=== PATIENT | female | born 1980 | race Caucasian/White ===

== ENCOUNTER 2017-08-17 19:16 | Emergency (ER) | payer MEDICARE, OTHER ==
[~2017-08-17] VITALS: Ht 167.6 cm; Wt 52.2 kg
[~2017-08-17 19:16] MED LIST: ALPR0.25 PO; AMPHETAMINE SALTS PO; BENZ-8 PO; CIPR500T94 PO; DEXT20TA24 PO; DEXT30CA6 PO; DEXTROAMP AMPHET PO; DOXY100C2 PO; GUAI600T47 PO; HYDR-971 PO; IBUP200T44 PO; LORA0.5T PO; MIDO5TAB PO; MIRT30TA3 PO; NORCO PO; ONDA4TAB10 PO; ONDA4TAB12 PO; PHEN-443 PO; QUET50TA8 PO; RANI15SY PO; SULF1TAB24 PO; TEMA15CA6 PO; TRAM50TA PO; ZOLP10TA PO; ZOLP5TAB5 PO
[2017-08-17 19:45] VITALS: BP 111/78
[2017-08-17] MEDS ORDERED: ACET325T9 PO (19:56)
[2017-08-17] MEDS ORDERED: CLIN300C8 PO (19:56)
[2017-08-17] MEDS ORDERED: NAPR-683 PO (19:56)
--- NOTE | 2017-08-17 19:56 | PHYS DOC ---
Past History Past Medical History: Alcoholism, Anxiety, Depression, UTI, Other Past Surgical History: Other Smoking: Cigarettes Alcohol Use: Heavy Drug Use: Amphetamine, Marijuana, Methamphetamine Adult General Chief Complaint Chief Complaint: FACE PROBLEM HPI HPI She is a pleasant 36-year-old female with a history of having alcoholism, ADHD, palpitations and prior dental issues presents with facial swelling that she noted earlier today in the left jaw. Patient has noted slight pain with chewing and hot and cold foods on the left jaw with localized swelling without fevers, chills or ear pain. She denies any direct trauma, denies any problems swallowing or change in voice. She's been taking Motrin to treat her symptoms: Mild improvement. She denies any change in voice and eyes and ear drainage or recent URI symptoms. Pain is moderate 6 of 10 Review of Systems Review of Systems Constitutional: Denies fever or chills [] Eyes: Denies change in visual acuity, redness, or eye pain [] HENT: Denies nasal congestion or sore throat [] Respiratory: Denies cough or shortness of breath [] Cardiovascular: No additional information not addressed in HPI [] GI: Denies abdominal pain, nausea, vomiting, bloody stools or diarrhea [] : Denies dysuria or hematuria [] Musculoskeletal: Denies back pain or joint pain [] Integument: Denies rash or skin lesions [] Neurologic: Denies headache, focal weakness or sensory changes [] All other systems were reviewed and found to be within normal limits, except as documented in this note. Allergies Allergies Allergies Coded Allergies Type Severity Reaction Last Updated Verified Penicillins Allergy Intermediate 09/21/16 Yes zolpidem Allergy Intermediate 09/21/16 Yes Physical Exam Physical Exam Other vital signs recorded on the chart within normal limits Constitutional: Well developed, well nourished, no acute distress, non-toxic appearance. She is somewhat dirty with soiled clothing and she has a facial tic [] HENT: Normocephalic, atraumatic, bilateral external ears normal, oropharynx dry , no oral exudates, she has poor dentition with multiple areas of dental caries and erosion to the enamel there is no soft tissue swelling to the gumline, no evidence of gingivitis, there is minimal tenderness to palpation over the teeth on the lower left mandible specifically over tooth 18 19 20 there is no obvious buccal or lingual cellulitis or inflammation. Patient's TMs are clear bilaterally[] Neck: Normal range of motion, no tenderness, supple, no stridor. No lymphadenopathy [] Cardiovascular:Heart rate regular rhythm, no murmur [] Lungs & Thorax: Bilateral breath sounds clear to auscultation [] Skin: Warm, dry, no erythema, no rash. [] Neurologic: Alert and oriented X 3, she has normal speech but a small facial tic noted] Psychologic: Affect normal, judgement normal, mood normal. [] EKG EKG [] Radiology/Procedures Radiology/Procedures [] Course & Med Decision Making Course & Med Decision Making Pertinent Labs and Imaging studies reviewed. (See chart for details) She presents with unilateral facial swelling although slight barely perceivable on my exam with some mild tenderness to palpation over the dentition on the lower half of the left mandible. There is no evidence of gingivitis or other focal cellulitis there is no periapical abscesses noted. Patient has no problem with chewing although she has mild facial tic which is probably likely secondary to medication use in the past. Patient was placed on appropriate antibiotic and dental follow-up. discharge: I've spoken with the patient and/or caregivers. I've explained the patient's condition, diagnosis and treatment plan based on information available to me at this time. I've answered the patient's and/or caregivers questions and addressed any concerns. The patient and/or caregivers have a good understanding the patient's diagnosis, condition and treatment plan as can be expected at this point. Vital signs have been stabilized. The patient's condition is stable for discharge from the emergency department. The patient will pursue further outpatient evaluation with her primary care provider or other designated consulting physician as outlined in the discharge instructions. Patient and/or caregivers are agreeable to this plan of care and follow-up instructions have been explained in detail. The patient and/or caregivers have received these instructions in written format and expressed understanding of these discharge instructions. The patient and her caregivers are aware that if any significant change in condition or worsening of symptoms should prompt him to immediately return to this of the closest emergency department. If an emergent department is not readily available I would encourage him to call 911. [] Dragon Disclaimer Dragon Disclaimer This electronic medical record was generated, in whole or in part, using a voice recognition dictation system. Departure Departure: Impression: Primary Impression: Dental caries limited to enamel Disposition: HOME, SELF-CARE Condition: IMPROVED Referrals: ROSLYN LUNA (PCP) Patient Instructions: Dental Caries Additional Instructions: discharge: I've spoken with the patient and/or caregivers. I've explained the patient's condition, diagnosis and treatment plan based on information available to me at this time. I've answered the patient's and/or caregivers questions and addressed any concerns. The patient and/or caregivers have a good understanding the patient's diagnosis, condition and treatment plan as can be expected at this point. Vital signs have been stabilized. The patient's condition is stable for discharge from the emergency department. The patient will pursue further outpatient evaluation with her primary care provider or other designated consulting physician as outlined in the discharge instructions. Patient and/or caregivers are agreeable to this plan of care and follow-up instructions have been explained in detail. The patient and/or caregivers have received these instructions in written format and expressed understanding of these discharge instructions. The patient and her caregivers are aware that if any significant change in condition or worsening of symptoms should prompt him to immediately return to this of the closest emergency department. If an emergent department is not readily available I would encourage him to call 911. Scripts Acetaminophen (TYLENOL) 325 Mg Tablet 1-2 TAB PO QID, #30 TAB 2 Refills Prov: ANN-MARIE CABRALES MD 08/17/17 Naproxen (NAPROSYN) 500 Mg Tablet 1 TAB PO BID, #20 TAB 1 Refill Prov: ANN-MARIE CABRALES MD 08/17/17 Clindamycin Hcl (CLINDAMYCIN HCL) 300 Mg Capsule 1 CAP PO TID, #30 CAP Prov: ANN-MARIE CABRALES MD 08/17/17 ANN-MARIE CABRALES MD Aug 17, 2017 19:56
[2017-08-17] MEDS ORDERED: CLINDAMYCIN HCL 150 MG CAPSULE PO ONE (20:30)
== END 2017-08-17 20:05 | disposition home or self-care (01) ==
LOC: ER 19:16
DX: K02.61 Dental caries on smooth surface limited to enamel (principal); F41.9 Anxiety disorder, unspecified; F32.9 Major depressive disorder, single episode, unspecified; F10.20 Alcohol dependence, uncomplicated; F90.9 Attention-deficit hyperactivity disorder, unspecified type; Z87.440 Personal history of urinary (tract) infections; F15.10 Other stimulant abuse, uncomplicated; F12.10 Cannabis abuse, uncomplicated; F17.210 Nicotine dependence, cigarettes, uncomplicated; Z88.0 Allergy status to penicillin; Z88.8 Allergy status to other drugs, medicaments and biological substances
CPT/HCPCS: 99283

== ENCOUNTER 2017-08-27 01:52 | Emergency (ER) | payer MEDICARE ==
[2017-08-27 01:52] VITALS: BP 113/74
[~2017-08-27 01:52] MED LIST changes: +ACET325T9 PO; +CLIN300C8 PO; +NAPR-683 PO
--- NOTE | 2017-08-27 02:12 | PHYS DOC ---
Past History Past Medical History: Alcoholism, Anemia, Depression Past Surgical History: Other Smoking: Cigarettes Alcohol Use: Occasionally Drug Use: None Adult General Chief Complaint Chief Complaint: jaw pain HPI HPI 36-year-old female patient with history of alcoholism brought in by EMS because of jaw pain. Patient complaining of lower jaw pain for 2 weeks as a constant pain with swelling of her face. Patient states she has one bottle of wine tonight and usually drinks once a week to able to fall asleep. Patient denies suicidal and homicidal ideation and hallucination. Patient denies taking any pain medication for her pain and rated his pain 10 over 10. EMS reported that patient had blood sugar of 141. Review of Systems Review of Systems Constitutional: Denies fever or chills [] Eyes: Denies change in visual acuity, redness, or eye pain [] HENT: Denies nasal congestion or sore throat [] Respiratory: Denies cough or shortness of breath [] Cardiovascular: No additional information not addressed in HPI [] GI: Denies abdominal pain, nausea, vomiting, bloody stools or diarrhea [] : Denies dysuria or hematuria [] Musculoskeletal: Denies back pain or joint pain , reports jaw pain[] Integument: Denies rash or skin lesions [] Neurologic: Denies headache, focal weakness or sensory changes [] Endocrine: Denies polyuria or polydipsia [] All other systems were reviewed and found to be within normal limits, except as documented in this note. Allergies Allergies Allergies Coded Allergies Type Severity Reaction Last Updated Verified Penicillins Allergy Intermediate 09/21/16 Yes zolpidem Allergy Intermediate 09/21/16 Yes Physical Exam Physical Exam Constitutional: mild distress, Alcohol on breath, anxious, non-toxic appearance. [] HENT: Normocephalic, atraumatic, oropharynx moist, no oral exudates, nose normal. [] Eyes: PERRLA, EOMI, conjunctiva normal, no discharge. [] Neck: Normal range of motion, no tenderness, supple, no stridor. [] Cardiovascular: Tachycardia, no murmur [] Lungs & Thorax: Bilateral breath sounds clear to auscultation [] Abdomen: Bowel sounds normal, soft, no tenderness, no masses, no pulsatile masses. [] Skin: Several old contusion and ecchymosis of extremity and abdominal wall. [] Back: No tenderness, no CVA tenderness. [] Extremities: No tenderness, no cyanosis, no clubbing, ROM intact, no edema. [] Neurologic: Alert and oriented X 3, normal motor function, normal sensory function, no focal deficits noted. [] Psychologic: Not suicidal or homicidal, depressed EKG EKG [EKG interpreted by me. EKG at 0237 with prolonged QT, no ST and T wave abnormality 37 showed sinus rhythm of 94,] Radiology/Procedures Radiology/Procedures [] Course & Med Decision Making Course & Med Decision Making Pertinent Labs reviewed. (See chart for details) Evaluation of patient in ER showed 36-year-old female patient with history of alcoholism brought in by EMS because of complaining of jaw pain for 2 weeks. Patient had alcohol on her breath but was alert and oriented and complaining of pain in her jaw and insomnia. Patient did not have suicidal and homicidal ideation. Jaw exam was unremarkable. Point of care basic metabolic panel did show potassium of 2.4. EKG showed mild prolonged QT without ST-T wave abnormality. CBC and CMP and magnesium and IV line was ordered but patient refused to have test and treatment with IV potassium. Patient signed AGAINST MEDICAL ADVICE. Patient treated with oral potassium and prescription for potassium was given. Patient had potassium of 2.6 in his previous admission and state that she always had low potassium. She ambulated without problem. Dragon Disclaimer Dragon Disclaimer This electronic medical record was generated, in whole or in part, using a voice recognition dictation system. Departure Departure: Impression: Primary Impression: Alcohol abuse Additional Impressions: Tachycardia Insomnia Jaw pain Hypokalemia Noncompliance Anxiety Disposition: 07 AGAINST MEDICAL ADVICE (At 0255) Condition: STABLE Referrals: ROSLYN LUNA (PCP) Patient Instructions: Alcohol Problems, Contusion, Hypokalemia, Insomnia Scripts Potassium Chloride (KLOR-CON M20) 20 Meq Tab.er.prt 20 MEQ PO BID, #60 TAB.SR Prov: GAVINO KENDRICK MD 08/27/17 Problem Qualifiers GAVINO KENDRICK MD Aug 27, 2017 02:12
[2017-08-27] MEDS ORDERED: IBUPROFEN 600 MG TABLET. PO ONE (02:15)
[2017-08-27 02:27] LABS: HEMOGLOBIN ISTAT 12.6 gm/dL; POTASSIUM ISTAT 2.4 mmol/L (3.5-5.0)
--- NOTE | 2017-08-27 02:43 | EKG ---
[address] [address] Test Date: 2017-08-27 Test Time: 02:37:45 Pat Name: HAILY ALBERTO Department: Room: Gender: F Director Traffic And Planning: CARMEN : 1980 Requested By: GAVINO KENDRICK Order Number: [id number] Reading MD: Robert Valle Measurements Intervals [place] Rate: 94 P: 53 CA: 140 QRS: 80 QRSD: 82 T: 44 QT: 398 QTc: 504 Interpretive Statements SINUS RHYTHM PROLONGED QT Electronically Signed On 09-02-2017 15:59:06 CEMENT FINISHER by Robert Valle
[2017-08-27] MEDS ORDERED: POTA20TA4 PO (02:46)
[2017-08-27] MEDS ORDERED: MVI, ADULT NO.4 WITH VIT K 10 ML, FOLIC ACID 1 MG, THIAMINE 100 MG in IV NORMAL SALINE ... IV ONE ×4 (03:00)
[2017-08-27] MEDS ORDERED: POTASSIUM BICARB 25 MEQ EFFERVESCENT TAB. PO ONE (03:00)
== END 2017-08-27 03:00 | disposition left against medical advice (07) ==
LOC: ER 01:52
DX: R68.84 Jaw pain (principal); G47.00 Insomnia, unspecified; R00.0 Tachycardia, unspecified; F10.10 Alcohol abuse, uncomplicated; E87.6 Hypokalemia; F41.9 Anxiety disorder, unspecified; F17.210 Nicotine dependence, cigarettes, uncomplicated; Z91.19 Patient's noncompliance with other medical treatment and regimen; Z88.0 Allergy status to penicillin; Z88.8 Allergy status to other drugs, medicaments and biological substances
CPT/HCPCS: 36415; 80047; 85014; 85018; 93005; 99283-25

== ENCOUNTER 2017-08-31 15:31 | Emergency (ER) | payer MEDICARE ==
[~2017-08-31] VITALS: Ht 167.6 cm; Wt 57.9 kg
[~2017-08-31 15:31] MED LIST changes: +POTA20TA4 PO
[2017-08-31 16:00] VITALS: BP 147/98
--- NOTE | 2017-08-31 17:40 | PHYS DOC ---
Past History Past Medical History: Alcoholism, Anemia, Depression Past Surgical History: Other Smoking: Cigarettes Alcohol Use: Occasionally Drug Use: None Adult General Chief Complaint Chief Complaint: LOWEREXTREMITY INJURY HPI HPI Patient is a 36 year old F who presents with swelling in her feet bilaterally that started today. She also notes symmetrical redness and pain. She denies any injury. She has no other associated symptoms. She has no other exacerbating or alleviating factors. Review of Systems Review of Systems Constitutional: Denies fever or chills [] Eyes: Denies change in visual acuity, redness, or eye pain [] HENT: Denies nasal congestion or sore throat [] Respiratory: Denies cough or shortness of breath [] Cardiovascular: No additional information not addressed in HPI [] GI: Denies abdominal pain, nausea, vomiting, bloody stools or diarrhea [] : Denies dysuria or hematuria [] Musculoskeletal: Denies back pain or joint pain [] Integument: Negative except history of present illness Neurologic: Denies headache, focal weakness or sensory changes [] Endocrine: Denies polyuria or polydipsia [] All other systems were reviewed and found to be within normal limits, except as documented in this note. Family History Family History Noncontributory Current Medications Current Medications Current medications were reviewed Allergies Allergies Allergies Coded Allergies Type Severity Reaction Last Updated Verified Penicillins Allergy Intermediate 09/21/16 Yes zolpidem Allergy Intermediate 09/21/16 Yes Physical Exam Physical Exam Constitutional: Well developed, well nourished, no acute distress, non-toxic appearance. [] HENT: Normocephalic, atraumatic Eyes: EOMI, conjunctiva normal, no discharge. [] Neck: Normal range of motion, no tenderness, supple, no stridor. [] Cardiovascular:Heart rate regular rhythm, no murmur [] Lungs & Thorax: Bilateral breath sounds clear to auscultation [] Abdomen: Bowel sounds normal, soft, no tenderness, no masses, no pulsatile masses. [] Skin: Symmetric erythema and edema in the feet bilaterally without signs of skin breakdown. Both feet are warm. She is noted to have no socks on and it is well below freezing outside. The redness appears to be in the approximate shape of her shoes. Extremities: No tenderness, no cyanosis, no clubbing, ROM intact, no edema. [] Neurologic: Alert and oriented X 3, normal motor function, normal sensory function, no focal deficits noted. [] Psychologic: Affect normal, judgement normal, mood normal. [] Current Patient Data Vital Signs Vital Signs Date Time Temp Pulse Resp B/P (MAP) Pulse Ox O2 Delivery O2 Flow Rate FiO2 08/31/17 16:00 97.7 108 20 99 Room Air EKG EKG [] Radiology/Procedures Radiology/Procedures [] Course & Med Decision Making Course & Med Decision Making Pertinent Labs and Imaging studies reviewed. (See chart for details) [] Dragon Disclaimer Dragon Disclaimer This electronic medical record was generated, in whole or in part, using a voice recognition dictation system. Departure Departure: Impression: Primary Impression: Foot swelling Disposition: 01 HOME, SELF-CARE Condition: STABLE Referrals: ROSLYN LUNA (PCP) Patient Instructions: Medical Screening Exam Additional Instructions: Svetlana was seen in the emergency department for foot swelling and pain. No emergency medical condition was found on history or physical exam. She was advised to use compression stockings and lidocaine patches to manage her symptoms. She was also advised follow-up with her primary care doctor as soon as possible for further management of this condition. LUIS FELIPE HOOKS MD Aug 31, 2017 17:40
== END 2017-08-31 17:47 | disposition home or self-care (01) ==
LOC: ER 15:31
DX: R22.43 Localized swelling, mass and lump, lower limb, bilateral (principal); M79.672 Pain in left foot; M79.671 Pain in right foot; F10.20 Alcohol dependence, uncomplicated; F17.210 Nicotine dependence, cigarettes, uncomplicated; Z86.2 Personal history of diseases of the blood and blood-forming organs and certain disorders involving the immune mechanism; Z88.0 Allergy status to penicillin; Z88.8 Allergy status to other drugs, medicaments and biological substances
CPT/HCPCS: 99281

== ENCOUNTER 2017-09-13 03:51 | Emergency (ER) | payer MEDICARE ==
[~2017-09-13] VITALS: Ht 167.6 cm; Wt 54.0 kg
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
[2017-09-13] MEDS ORDERED: CEPH-264 PO (04:08)
[2017-09-13] MEDS ORDERED: CEPHALEXIN 250 MG CAPSULE PO ONE (04:15)
[2017-09-13] MEDS ORDERED: ACETAMINOPHEN 500 MG TABLET PO ONE (04:15)
[2017-09-13 04:38] VITALS: BP 115/80
== END 2017-09-13 04:38 | disposition home or self-care (01) ==
LOC: ER 03:51
DX: K08.89 Other specified disorders of teeth and supporting structures (principal); R59.9 Enlarged lymph nodes, unspecified; G89.29 Other chronic pain; F32.9 Major depressive disorder, single episode, unspecified; F43.10 Post-traumatic stress disorder, unspecified; F10.20 Alcohol dependence, uncomplicated; F17.210 Nicotine dependence, cigarettes, uncomplicated; Z86.2 Personal history of diseases of the blood and blood-forming organs and certain disorders involving the immune mechanism; Z88.0 Allergy status to penicillin; Z88.8 Allergy status to other drugs, medicaments and biological substances
CPT/HCPCS: 99283

== ENCOUNTER 2017-10-01 03:41 | Emergency (ER) | payer MEDICARE ==
[~2017-10-01] VITALS: Ht 167.6 cm; Wt 54.0 kg
[~2017-10-01 03:41] MED LIST changes: +CEPH-264 PO
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
[2017-10-01] MEDS: HYDROcodon/IBUPROFEN 7.5/200MG 1 TAB TABLET PO ONE ×2 (04:00→04:08)
[2017-10-01] MEDS ORDERED: ALBUTEROL SULFATE 8GM INHALER. INH ONE (04:00)
[2017-10-01] MEDS ORDERED: diphenhydrAMINE HCL 25 MG CAPSULE PO ONE (04:00)
[2017-10-01] MEDS ORDERED: predniSONE 10 MG TABLET PO ONE ×2 (04:00→04:15)
[2017-10-01] MEDS ORDERED: IV RINGERS SOLUTION,LACTATED 1,000 ML IV ONE (04:15)
[2017-10-01] MEDS ORDERED: oxyCODONE/APAP 10/325 1 TAB TABLET PO ONE (04:15)
[2017-10-01 04:53] LABS: BASO # 0.1 x10^3/uL (0.0-0.2); BASO % 1 % (0-3); EOS # 0.3 x10^3/uL (0.0-0.7); EOS % 4 % (0-3); HEMATOCRIT 41.1 % (36.0-47.0); HEMOGLOBIN 14.5 g/dL (12.0-15.5); LYMPH # 1.9 x10^3/uL (1.0-4.8); LYMPH % 29 % (24-48); MEAN CORPUSCULAR HEMOGLOBIN 38 pg (25-35); MEAN CORPUSCULAR HGB CONC 35 g/dL (31-37); MEAN CORPUSCULAR VOLUME 106 fL (79-100); MONO % 15 % (0-9); NEUT # 3.3 x10^3uL (1.8-7.7); NEUT % 51 % (31-73); PLATELET COUNT 244 x10^3/uL (140-400); RED BLOOD COUNT 3.86 x10^6/uL (3.50-5.40); RED CELL DISTRIBUTION WIDTH 13.1 % (11.5-14.5); WHITE BLOOD COUNT 6.5 x10^3/uL (4.0-11.0)
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
[2017-10-01 04:59] LABS: BILIRUBIN,URINE NEG (NEG); CLARITY,URINE CLEAR; COLOR,URINE YELLOW; GLUCOSE,URINE NEG (NEG); NITRITE,URINE NEG (NEG); RBC,URINE OCC /HPF (0-2); UROBILINOGEN,URINE 0.2 mg/dL (0.2 mg/dL)
[2017-10-01 05:00] LABS: BACTERIA,URINE FEW /HPF (0-FEW); SQUAMOUS EPITHELIAL CELL,UR MANY /LPF
[2017-10-01 05:03] LABS: CALCIUM 8.7 mg/dL (8.5-10.1); CREATININE 0.5 mg/dL (0.6-1.0); GFR 141.2; MAGNESIUM 1.9 mg/dL (1.8-2.4)
[2017-10-01 05:04] LABS: BARBITURATES NEG (NEG); BENZODIAZEPINES NEG (NEG); CANNABINOIDS NEG (NEG); COCAINE NEG (NEG); METHADONE NEG (NEG); OPIATES NEG (NEG); PHENCYCLIDINE NEG (NEG)
[2017-10-01 05:08] LABS: POTASSIUM 2.7 mmol/L (3.5-5.1)
[2017-10-01 05:09] LABS: AMPHETAMINE/METHAMPHETAMINE NEG (NEG)
[2017-10-01] MEDS ORDERED: POTASSIUM CHLORIDE 20 MEQ/15 ML ORAL LIQUID. PO ONE (05:15)
[2017-10-01] MEDS ORDERED: IPRATRPIUM/ALBUTEROL 0.5/2.5MG 3 ML NEBU. NEB ONE (05:15)
[2017-10-01 05:19] LABS: INFLUENZA A PATIENT NEGATIVE (NEGATIVE); INFLUENZA B PATIENT NEGATIVE (NEGATIVE)
[2017-10-01] MEDS ORDERED: PRED50TA PO (05:34)
[2017-10-01] MEDS ORDERED: POTA10CA PO (05:38)
[2017-10-01] MEDS ORDERED: POTASSIUM CHLORIDE 20 MEQ TABLET.ER. PO ONE (06:00)
[2017-10-01 06:09] VITALS: BP 96/70
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
--- NOTE | 2017-10-01 08:41 | EKG ---
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
== END 2017-10-01 06:16 | disposition home or self-care (01) ==
LOC: ER 03:41
DX: B34.9 Viral infection, unspecified (principal); J40 Bronchitis, not specified as acute or chronic; D53.9 Nutritional anemia, unspecified; D50.9 Iron deficiency anemia, unspecified; E87.6 Hypokalemia; F10.20 Alcohol dependence, uncomplicated; F17.210 Nicotine dependence, cigarettes, uncomplicated; F32.9 Major depressive disorder, single episode, unspecified; Z86.2 Personal history of diseases of the blood and blood-forming organs and certain disorders involving the immune mechanism; Z88.0 Allergy status to penicillin; Z88.8 Allergy status to other drugs, medicaments and biological substances
CPT/HCPCS: 36415; 70450; 71046; 80048; 80307; 81001; 81025; 83735; 84702; 85025; 85610; 85730; 87070; 87804; 87880; 93005; 94640; 96360; 99285; G0480; J7120; J7512; J7613; J7620; Q0163; 94664; G0479

== ENCOUNTER 2017-11-03 11:37 | Emergency (ER) | payer MEDICARE ==
[~2017-11-03] VITALS: Ht 167.6 cm; Wt 54.0 kg
[~2017-11-03 11:37] MED LIST changes: +POTA10CA PO; +PRED50TA PO
[2017-11-03] MEDS ORDERED: HALOPERIDOL 1 MG TABLET ONE (11:57)
[2017-11-03] MEDS ORDERED: HALOPERIDOL 1 MG TABLET PO ONE (12:00)
[2017-11-03 12:14] LABS: BASO % 1 % (0-3); EOS % 0 % (0-3); HEMATOCRIT 39.6 % (36.0-47.0); HEMOGLOBIN 13.9 g/dL (12.0-15.5); LYMPH # 0.9 x10^3/uL (1.0-4.8); LYMPH % 18 % (24-48); MEAN CORPUSCULAR HEMOGLOBIN 36 pg (25-35); MEAN CORPUSCULAR HGB CONC 35 g/dL (31-37); MEAN CORPUSCULAR VOLUME 103 fL (79-100); MONO # 0.6 x10^3/uL (0.0-1.1); MONO % 12 % (0-9); NEUT # 3.5 x10^3uL (1.8-7.7); NEUT % 69 % (31-73); PLATELET COUNT 238 x10^3/uL (140-400); RED BLOOD COUNT 3.85 x10^6/uL (3.50-5.40); WHITE BLOOD COUNT 5.1 x10^3/uL (4.0-11.0)
--- NOTE | 2017-11-03 12:19 | RAD ---
EXAM: Chest, single view. HISTORY: Pain. COMPARISON: 10/01/2017. FINDINGS: A frontal view of the chest is obtained. There is no infiltrate, effusion or pneumothorax. The heart is normal in size. There is fixation instrumentation traversing a healed proximal left humeral fracture, partially included on the [id number]. There is a suspected healed right sixth rib fracture. IMPRESSION: No acute pulmonary finding. Electronically signed by: Debra Canales MD (11/03/2017 12:16 PM) [id number]
[2017-11-03 12:23] LABS: ALBUMIN 3.3 g/dL (3.4-5.0); CALCIUM 8.7 mg/dL (8.5-10.1); CREATININE 0.5 mg/dL (0.6-1.0); DIRECT BILIRUBIN 0.2 mg/dL (0.0-0.2); GFR 141.2; TOTAL BILIRUBIN 0.9 mg/dL (0.2-1.0)
[2017-11-03 12:25] LABS: POTASSIUM 2.6 mmol/L (3.5-5.1)
--- NOTE | 2017-11-03 13:13 | EKG ---
[address] [address] Test Date: 2017-11-03 Test Time: 11:44:50 Pat Name: HAILY ALBERTO Department: Room: Gender: F Insurance Risk Manager: CARMEN : 1980 Requested By: FRACISCO NOBLE Order Number: [id number] Reading MD: Measurements Intervals [place] Rate: 96 P: -50 TN: 136 QRS: 82 QRSD: 78 T: 59 QT: 366 QTc: 469 Interpretive Statements SINUS RHYTHM LEFT ATRIAL ABNORMALITY QRS(T) CONTOUR ABNORMALITY CONSIDER ANTEROSEPTAL MYOCARDIAL DAMAGE ABNORMAL ECG RI6.01 No previous ECG available for comparison
[2017-11-03] MEDS ORDERED: POTASSIUM CHLORIDE 20 MEQ/15 ML ORAL LIQUID. PO ONE (14:00)
[2017-11-03 14:01] LABS: PREG TEST PT QUAL NEGATIVE (NEG)
[2017-11-03 14:10] VITALS: BP 146/71
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
[2017-11-03 14:15] LABS: AMPHETAMINE/METHAMPHETAMINE POS (NEG); BARBITURATES NEG (NEG); BENZODIAZEPINES NEG (NEG); CANNABINOIDS NEG (NEG); COCAINE NEG (NEG); METHADONE NEG (NEG); OPIATES NEG (NEG); PHENCYCLIDINE NEG (NEG)
[2017-11-03 14:30] LABS: BILIRUBIN,URINE NEG (NEG); CLARITY,URINE CLEAR; COLOR,URINE YELLOW; GLUCOSE,URINE NEG (NEG); NITRITE,URINE NEG (NEG); RBC,URINE 0 /HPF (0-2); UROBILINOGEN,URINE 0.2 mg/dL (0.2 mg/dL); WBC,URINE 0 /HPF (0-4)
[2017-11-03] MEDS ORDERED: POTASSIUM CHLORIDE IV ONE (14:30)
[2017-11-03] MEDS ORDERED: NORMAL SALINE IV ONE (14:30)
[2017-11-03 14:31] LABS: BACTERIA,URINE 0 /HPF (0-FEW); SQUAMOUS EPITHELIAL CELL,UR OCC /LPF
== END 2017-11-03 15:25 | disposition left against medical advice (07) ==
LOC: ER 11:37
DX: R07.89 Other chest pain (principal); E87.6 Hypokalemia; F41.9 Anxiety disorder, unspecified; F32.9 Major depressive disorder, single episode, unspecified; F17.210 Nicotine dependence, cigarettes, uncomplicated; Z87.820 Personal history of traumatic brain injury; Z88.0 Allergy status to penicillin; Z88.8 Allergy status to other drugs, medicaments and biological substances
CPT/HCPCS: 36415; 71045; 80048; 80076; 80307; 81001; 83690; 84703; 85025; 93005; 99285-25; G0479

== ENCOUNTER 2018-12-24 18:55 | Inpatient (IN) | payer MEDICARE, OTHER ==
[~2018-12-24] VITALS: Ht 167.6 cm; Wt 55.3 kg
[~2018-12-24 18:55] MED LIST changes: +HYDR-3165 PO; -HYDR-971 PO; -QUET50TA8 PO; +QUET50TA9 PO
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
[2018-12-24] MEDS ORDERED: MVI, ADULT NO.4 WITH VIT K 10 ML, FOLIC ACID SYRINGE for ER 1 MG, THIAMINE INJ 100 MG, ... IV ONE ×5 (19:30)
--- NOTE | 2018-12-24 19:37 | EKG ---
[address] [address] Test Date: 2018-12-24 Test Time: 19:36:51 Pat Name: HAILY ALBERTO Department: Room: Gender: F Binder Caser: : 1980 Requested By: TORITO BERMUDEZ Order Number: [id number] Reading MD: Robert Valle Measurements Intervals [place] Rate: 100 P: 22 NH: 140 QRS: 91 QRSD: 84 T: 41 QT: 366 QTc: 475 Interpretive Statements SINUS RHYTHM RIGHTWARD AXIS PROLONGED QT Electronically Signed On 01-21-2019 13:15:39 CDT by Robert Valle
[2018-12-24 19:58] LABS: BASO % 1 % (0-3); EOS # 0.1 x10^3/uL (0.0-0.7); EOS % 1 % (0-3); HEMATOCRIT 38.9 % (36.0-47.0); LYMPH # 1.7 x10^3/uL (1.0-4.8); LYMPH % 17 % (24-48); MEAN CORPUSCULAR HEMOGLOBIN 31 pg (25-35); MEAN CORPUSCULAR HGB CONC 34 g/dL (31-37); MEAN CORPUSCULAR VOLUME 94 fL (79-100); MONO # 0.7 x10^3/uL (0.0-1.1); MONO % 7 % (0-9); NEUT # 7.2 x10^3uL (1.8-7.7); NEUT % 74 % (31-73); PLATELET COUNT 241 x10^3/uL (140-400); RED BLOOD COUNT 4.15 x10^6/uL (3.50-5.40); RED CELL DISTRIBUTION WIDTH 13.7 % (11.5-14.5); WHITE BLOOD COUNT 9.7 x10^3/uL (4.0-11.0)
[2018-12-24 19:59] LABS: BILIRUBIN,URINE NEG (NEG); CLARITY,URINE CLEAR; COLOR,URINE YELLOW; GLUCOSE,URINE NEG (NEG); UROBILINOGEN,URINE 0.2 mg/dL (0.2 mg/dL)
[2018-12-24 20:00] LABS: BACTERIA,URINE 0 /HPF (0-FEW); NITRITE,URINE NEG (NEG); RBC,URINE 0 /HPF (0-2); SQUAMOUS EPITHELIAL CELL,UR OCC /LPF; WBC,URINE 0 /HPF (0-4)
[2018-12-24 20:03] LABS: BARBITURATES NEG (NEG); BENZODIAZEPINES NEG (NEG); CANNABINOIDS NEG (NEG); COCAINE NEG (NEG); METHADONE NEG (NEG); OPIATES NEG (NEG); PHENCYCLIDINE NEG (NEG)
[2018-12-24 20:05] LABS: AMPHETAMINE/METHAMPHETAMINE NEG (NEG)
[2018-12-24 20:16] LABS: U PREG PATIENT NEGATIVE (NEG)
--- NOTE | 2018-12-24 20:59 | RAD ---
EXAM: Chest, single view. HISTORY: Altered mental status. COMPARISON: 11/03/2017 FINDINGS: A frontal view the chest is obtained. There is no infiltrate, pleural effusion or pneumothorax. The heart is normal in size. There is suspected bilateral lower lobe atelectasis. There is an IVC filter and there are cholecystectomy clips at the inferior margin of the [id number]. IMPRESSION: No acute pulmonary finding. Electronically signed by: Debra Canales MD (12/24/2018 8:56 PM) [facility]
--- NOTE | 2018-12-24 21:03 | RAD ---
EXAM: Head CT without contrast. HISTORY: Altered mental status. TECHNIQUE: Computed tomographic images of the head were obtained without contrast. *One or more of the following individualized dose reduction techniques were utilized for this examination: 1. Automated exposure control. 2. Adjustment of the mA and/or kV according to patient size. 3. Use of iterative reconstruction technique. COMPARISON: 10/01/2017. FINDINGS: There is no acute or subacute hemorrhage. There is stable encephalomalacia within the left parietal and posterior temporal lobes with overlying craniotomy changes. There is ex vacuo dilatation of the posterior left lateral ventricle. There is no mass effect or midline shift. There is no hydrocephalus. The urias-white matter differentiation pattern is intact. The visualized orbits and paranasal sinuses mastoid air cells are unremarkable. No suspicious calvarial lesion is seen. IMPRESSION: 1. Stable encephalomalacia within the left cerebral hemisphere with overlying craniotomy changes. There is associated ex vacuo dilatation of the left lateral ventricle. 2. No acute intracranial finding. Note is made that MRI is more sensitive for acute infarction. Electronically signed by: Debra Canales MD (12/24/2018 9:00 PM) [facility]
[2018-12-24 22:13] LABS: ACETAMIN < 2 mcg/mL (10-30); ETHANOL 338 mg/dL (0-10); SALIC 3.2 mg/dL (2.8-20.0)
[2018-12-24 22:18] LABS: ALBUMIN 3.4 g/dL (3.4-5.0); CALCIUM 8.4 mg/dL (8.5-10.1); CREATININE 0.6 mg/dL (0.6-1.0); GFR 113.1; MAGNESIUM 2.8 mg/dL (1.8-2.4); POTASSIUM 3.6 mmol/L (3.5-5.1); TOTAL BILIRUBIN 0.1 mg/dL (0.2-1.0); TOTAL PROTEIN 6.8 g/dL (6.4-8.2)
[2018-12-24] MEDS ORDERED: ACETAMINOPHEN 325 MG TABLET PO PRN (22:45)
[2018-12-24] MEDS ORDERED: ONDANSETRON PF 4 MG/2 ML VIAL. IV PRN (22:45)
[2018-12-24] MEDS: IV NORMAL SALINE 1,000ML 1,000 ML IV SCH (23:00)
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
[2018-12-24 23:52] VITALS: BP 114/79
[2018-12-25] MEDS: IV NORMAL SALINE 1,000ML 1,000 ML IV SCH (02:55)
--- NOTE | 2018-12-25 04:34 | NUR ---
Pt amb x1 assist to BR. Reports inability to urinate. Pt has voided x3 since arrival to unit, with once being an episode of incontinence. Pt requesting to be straight cathed. Assisted back to bed and bladder scan performed. Showed 0ml urine in bladder. Pt informed. WCTM.
[2018-12-25 05:29] VITALS: BP 126/87
[2018-12-25 06:19] LABS: BASO % 1 % (0-3); EOS # 0.1 x10^3/uL (0.0-0.7); EOS % 1 % (0-3); HEMATOCRIT 40.7 % (36.0-47.0); HEMOGLOBIN 13.9 g/dL (12.0-15.5); LYMPH # 1.9 x10^3/uL (1.0-4.8); LYMPH % 38 % (24-48); MEAN CORPUSCULAR HEMOGLOBIN 32 pg (25-35); MEAN CORPUSCULAR HGB CONC 34 g/dL (31-37); MEAN CORPUSCULAR VOLUME 93 fL (79-100); MONO # 0.3 x10^3/uL (0.0-1.1); MONO % 6 % (0-9); NEUT # 2.7 x10^3uL (1.8-7.7); NEUT % 55 % (31-73); PLATELET COUNT 261 x10^3/uL (140-400); RED CELL DISTRIBUTION WIDTH 13.8 % (11.5-14.5)
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
[2018-12-25 06:31] LABS: ALBUMIN 3.4 g/dL (3.4-5.0); CREATININE 0.4 mg/dL (0.6-1.0); GFR 180.6; POTASSIUM 4.8 mmol/L (3.5-5.1); TOTAL BILIRUBIN 0.3 mg/dL (0.2-1.0); TOTAL PROTEIN 6.9 g/dL (6.4-8.2)
--- NOTE | 2018-12-25 06:50 | NUR ---
Pt still wishes to leave. Pt contacted her father, Syed, to come pick her up. AMA paperwork signed. IV removed and patient dressed in her clothes. Belongings gathered. Dr. Santiago, security and nursing front desk supervisor notified, staff talked with patient on decision to leave again and remains adamant she does not want to be in the hospital. Pt amb off unit independently with all belongings.
== END 2018-12-25 06:59 | disposition left against medical advice (07) | DRG 894 ==
LOC: ER 18:55 → 1 SOUTH 22:29
PROVIDERS: ADMIT Internal Medicine; ATTEND Internal Medicine
DX: F10.129 Alcohol abuse with intoxication, unspecified (principal); F31.9 Bipolar disorder, unspecified; F17.210 Nicotine dependence, cigarettes, uncomplicated; Z88.0 Allergy status to penicillin; Z53.21 Procedure and treatment not carried out due to patient leaving prior to being seen by health care provider; G93.89 Other specified disorders of brain
CPT/HCPCS: 36415; 70450; 71045; 80053; 80307; 80329; 81001; 81025; 82947; 83735; 83880; 85025; 85610; 93005; 96365; 96366; 99406; G0480; P9612; 82003; 99285-25; J7030

== ENCOUNTER 2019-01-01 12:26 | Emergency (ER) | payer MEDICARE, OTHER ==
[~2019-01-01] VITALS: Ht 167.6 cm; Wt 54.0 kg
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
--- NOTE | 2019-01-01 16:44 | EKG ---
[address] [address] Test Date: 2019-01-01 Test Time: 16:41:39 Pat Name: HAILY ALBERTO Department: Room: Gender: F Supervisor Mapping: ANGELA : 1980 Requested By: TAWANNA LAWS Order Number: [id number] Reading MD: Robert Valle Measurements Intervals [place] Rate: 104 P: 10 [place]: 142 QRS: 87 QRSD: 86 T: 54 QT: 370 QTc: 487 Interpretive Statements SINUS TACHYCARDIA Electronically Signed On 01-22-2019 12:31:41 CDT by Robert Valle
[2019-01-01] MEDS ORDERED: IV NORMAL SALINE 1,000ML 1,000 ML IV ONE (16:45)
[2019-01-01 16:49] LABS: BASO % 0 % (0-3); EOS # 0.1 x10^3/uL (0.0-0.7); EOS % 1 % (0-3); HEMATOCRIT 43.8 % (36.0-47.0); HEMOGLOBIN 14.7 g/dL (12.0-15.5); LYMPH # 4.4 x10^3/uL (1.0-4.8); LYMPH % 30 % (24-48); MEAN CORPUSCULAR HEMOGLOBIN 31 pg (25-35); MEAN CORPUSCULAR HGB CONC 34 g/dL (31-37); MEAN CORPUSCULAR VOLUME 93 fL (79-100); MONO # 1.4 x10^3/uL (0.0-1.1); MONO % 10 % (0-9); NEUT # 8.7 x10^3uL (1.8-7.7); NEUT % 60 % (31-73); PLATELET COUNT 347 x10^3/uL (140-400); RED BLOOD COUNT 4.69 x10^6/uL (3.50-5.40); RED CELL DISTRIBUTION WIDTH 13.8 % (11.5-14.5); WHITE BLOOD COUNT 14.7 x10^3/uL (4.0-11.0)
[2019-01-01 17:08] LABS: ACETAMIN < 2 mcg/mL (10-30); SALIC 3.4 mg/dL (2.8-20.0)
[2019-01-01 17:09] LABS: ALBUMIN 3.2 g/dL (3.4-5.0); ALBUMIN/GLOBULIN RATIO 0.8 (1.0-1.7); CALCIUM 8.8 mg/dL (8.5-10.1); CREATININE 0.6 mg/dL (0.6-1.0); GFR 113.1; POTASSIUM 3.5 mmol/L (3.5-5.1); TOTAL BILIRUBIN 0.3 mg/dL (0.2-1.0); TOTAL PROTEIN 7.4 g/dL (6.4-8.2)
[2019-01-01 19:00] VITALS: BP 104/64
== END 2019-01-01 19:30 | disposition left against medical advice (07) ==
LOC: ER 12:26
DX: F10.129 Alcohol abuse with intoxication, unspecified (principal); Y90.8 Blood alcohol level of 240 mg/100 ml or more
CPT/HCPCS: 36415; 80053; 80329; 82947; 85025; 93005; 99285; G0480; 82003; J7030

== ENCOUNTER 2019-01-29 09:32 | Emergency (ER) | payer MEDICARE, OTHER ==
[~2019-01-29] VITALS: Ht 167.6 cm; Wt 54.0 kg
[2019-01-29] MEDS ORDERED: IV NORMAL SALINE 1,000ML 1,000 ML IV SCH (09:39)
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
[2019-01-29 10:00] LABS: BASO % 1 % (0-3); EOS # 0.1 x10^3/uL (0.0-0.7); EOS % 1 % (0-3); HEMATOCRIT 41.2 % (36.0-47.0); HEMOGLOBIN 14.3 g/dL (12.0-15.5); LYMPH # 1.4 x10^3/uL (1.0-4.8); LYMPH % 24 % (24-48); MEAN CORPUSCULAR HEMOGLOBIN 33 pg (25-35); MEAN CORPUSCULAR HGB CONC 35 g/dL (31-37); MEAN CORPUSCULAR VOLUME 95 fL (79-100); MONO # 0.5 x10^3/uL (0.0-1.1); MONO % 8 % (0-9); NEUT % 66 % (31-73); PLATELET COUNT 248 x10^3/uL (140-400); RED BLOOD COUNT 4.35 x10^6/uL (3.50-5.40); RED CELL DISTRIBUTION WIDTH 14.3 % (11.5-14.5); WHITE BLOOD COUNT 6.1 x10^3/uL (4.0-11.0)
[2019-01-29] MEDS ORDERED: IOHEXOL 300 MG/ML 75 ML VIAL. IV ONE (10:00)
[2019-01-29] MEDS ORDERED: ONDANSETRON PF 4 MG/2 ML VIAL. IV ONE (10:00)
[2019-01-29 10:14] LABS: ALBUMIN 3.5 g/dL (3.4-5.0); CREATININE 0.9 mg/dL (0.6-1.0); GFR 70.8; POTASSIUM 3.1 mmol/L (3.5-5.1); TOTAL BILIRUBIN 0.3 mg/dL (0.2-1.0)
--- NOTE | 2019-01-29 11:02 | RAD ---
CT ABD PELV W/ IV CONTRST ONLY Indication: Right abdominal pain after falling. Exposure: One or more of the following individualized dose reduction techniques were utilized for this examination: 1. Automated exposure control 2. Adjustment of the mA and/or kV according to patient size 3. Use of iterative reconstruction technique. Technique: Intravenous contrast was given. No oral contrast per request. Comparison: Axial images from noncontrast study March 05, 2016 FINDINGS: Lung bases are clear. Area of low-density within the medial segment of the left lobe of the liver adjacent to the falciform ligament without mass effect, likely just an area of focal fatty infiltration. Tiny low-density lesion in the posterior right lobe less than 1 cm too small to characterize. Both of these findings appear roughly similar as seen on noncontrast prior study. Inferior vena cava filter is identified. The legs of the filter protrude beyond the IVC similar to what was seen previously. It is possible that some of the legs extend into the pancreas itself, similar to prior study. Pancreas demonstrates a homogeneous morphology without peripancreatic inflammatory stranding or fluid. Spleen unremarkable. Right adrenal gland unremarkable. Low-density left adrenal nodule is redemonstrated and appears of similar size, measuring about 13 mm. Kidneys enhance symmetrically. No hydronephrosis. Gallbladder surgically absent. Aorta nonaneurysmal. No significant lymph node enlargement. No significant small bowel distention. Wall thickening of the sigmoid colon and descending colon, but that could be due to nondistention. There is no acute appearing paracolonic inflammatory stranding. The appendix is not clearly visualized. Mild retained stool in the colon on the right. No evidence of pneumoperitoneum or ascites. Urinary bladder demonstrates wall thickening, even accounting for the lack of distention. No evidence of pelvic mass. Spurring of the L2 vertebrae with superior endplate Schmorl's node. No evidence of acute fracture or aggressive bone destruction. Mild left convexity lumbar scoliosis. IMPRESSION: 1. Circumferential wall thickening of the descending and sigmoid colon. No evidence of significant paracolonic inflammatory stranding and this could just be due to nondistention, unless there are clinical signs of colitis. 2. Inferior vena cava filter with extraluminal leg protrusion, apparently into the pancreas. However this appears stable since prior study. 3. Stable left adrenal mass. Electronically signed by: Emory Lipscomb MD (01/29/2019 10:58 AM) [id number]
[2019-01-29 11:40] VITALS: BP 128/88
[2019-01-29] MEDS ORDERED: MELO7.5T29 PO (11:41)
[2019-01-29] MEDS ORDERED: TRAM50TA PO (11:41)
[2019-01-29 12:00] LABS: COLOR,URINE YELLOW
[2019-01-29 12:01] LABS: BACTERIA,URINE FEW /HPF (0-FEW); BILIRUBIN,URINE NEG (NEG); CLARITY,URINE CLEAR; GLUCOSE,URINE NEG (NEG); NITRITE,URINE NEG (NEG); RBC,URINE 0 /HPF (0-2); SQUAMOUS EPITHELIAL CELL,UR MOD /LPF; UROBILINOGEN,URINE 1 mg/dL (0.2 mg/dL)
== END 2019-01-29 11:54 | disposition home or self-care (01) ==
LOC: ER 09:32
DX: S30.1XXA Contusion of abdominal wall, initial encounter (principal); F31.9 Bipolar disorder, unspecified; F17.210 Nicotine dependence, cigarettes, uncomplicated; Z88.0 Allergy status to penicillin; Z88.8 Allergy status to other drugs, medicaments and biological substances; W10.8XXA Fall (on) (from) other stairs and steps, initial encounter; Y93.89 Activity, other specified; Y92.89 Other specified places as the place of occurrence of the external cause; Y99.8 Other external cause status
CPT/HCPCS: 36415; 74177; 80053; 81001; 81025; 83690; 85025; 85610; 85730; 96374; 96375; 96376; 99285; J2405; J3010; Q9967; J7030

== ENCOUNTER 2019-03-16 09:24 | Inpatient (IN) | payer MEDICARE, MEDICAID ==
[~2019-03-16] VITALS: Ht 167.6 cm; Wt 52.6 kg
[~2019-03-16 09:24] MED LIST changes: +MELO7.5T29 PO
[2019-03-16] MEDS ORDERED: IV NORMAL SALINE 1,000ML 1,000 ML IV ONE (09:45)
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
[2019-03-16 10:26] LABS: BASO % 0 % (0-3); EOS % 0 % (0-3); HEMATOCRIT 35.9 % (36.0-47.0); HEMOGLOBIN 12.7 g/dL (12.0-15.5); LYMPH # 0.7 x10^3/uL (1.0-4.8); LYMPH % 10 % (24-48); MEAN CORPUSCULAR HEMOGLOBIN 33 pg (25-35); MEAN CORPUSCULAR HGB CONC 35 g/dL (31-37); MEAN CORPUSCULAR VOLUME 94 fL (79-100); MONO # 0.5 x10^3/uL (0.0-1.1); MONO % 8 % (0-9); NEUT # 5.9 x10^3uL (1.8-7.7); NEUT % 82 % (31-73); PLATELET COUNT 151 x10^3/uL (140-400); RED BLOOD COUNT 3.82 x10^6/uL (3.50-5.40); RED CELL DISTRIBUTION WIDTH 13.3 % (11.5-14.5); WHITE BLOOD COUNT 7.1 x10^3/uL (4.0-11.0)
[2019-03-16 10:38] LABS: ALBUMIN 3.6 g/dL (3.4-5.0); ALBUMIN/GLOBULIN RATIO 1.1 (1.0-1.7); CALCIUM 9.5 mg/dL (8.5-10.1); CREATININE 0.7 mg/dL (0.6-1.0); GFR 94.7; TOTAL BILIRUBIN 1.3 mg/dL (0.2-1.0); TOTAL PROTEIN 6.8 g/dL (6.4-8.2)
[2019-03-16 10:40] LABS: POTASSIUM 2.4 mmol/L (3.5-5.1)
[2019-03-16] MEDS ORDERED: POTASSIUM CL 40MEQ IN 0.9%NACL 1,000 ML IV ONE (10:45)
[2019-03-16] MEDS ORDERED: POTASSIUM CHLORIDE 20 MEQ TABLET.ER. PO ONE (11:20)
[2019-03-16] MEDS ORDERED: ONDANSETRON PF 4 MG/2 ML VIAL. ONE (13:31)
[2019-03-16 13:35] VITALS: BP 122/81
--- NOTE | 2019-03-16 13:42 | EKG ---
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
[2019-03-16] MEDS ORDERED: HYDROcodone/APAP 5/325MG 1 TAB TABLET ONE (14:14)
[2019-03-16] MEDS ORDERED: METOCLOPRAMIDE HCL 10 MG/2 ML VIAL. IV PRN (14:15)
[2019-03-16] MEDS ORDERED: KETOROLAC 30 MG/ML VIAL. IV PRN (14:15)
[2019-03-16] MEDS ORDERED: HYDROcodone/APAP 5/325MG 1 TAB TABLET PO PRN (14:15)
[2019-03-16] MEDS ORDERED: ONDANSETRON PF 4 MG/2 ML VIAL. IV PRN (14:15)
[2019-03-16] MEDS: HYDROcodone/APAP 5/325MG 1 TAB TABLET PO PRN ×3 (14:16→15:41)
[2019-03-16] MEDS ORDERED: HYDR-2155 PO (15:16)
[2019-03-16] MEDS: POTASSIUM CL 40MEQ IN 0.9%NACL 1,000 ML IV SCH (15:41)
[2019-03-16] MEDS ORDERED: cloNIDine HCL 0.1 MG TABLET PO PRN (15:45)
[2019-03-16] MEDS ORDERED: HALOPERIDOL LACT 5 MG/ML VIAL. IM PRN (15:45)
[2019-03-16] MEDS ORDERED: chlordiazePOXIDE HCL 25 MG CAPSULE PO PRN ×2 (15:45)
[2019-03-16] MEDS ORDERED: LORazepam 1 MG TABLET PO PRN ×2 (15:45)
[2019-03-16] MEDS ORDERED: diphenhydrAMINE 50 MG/ML VIAL IVP PRN (15:45)
[2019-03-16 15:47] VITALS: BP 121/66
--- NOTE | 2019-03-16 16:05 | NUR ---
PT hallucinating thinking someone is dying outside. PT reports taking to her dad , however, we have not seen her on the phone. PT constantly saying her Left shoulder is hurting and wanting Lortab. raysa MADERA
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
[2019-03-16 17:41] LABS: BILIRUBIN,URINE NEG (NEG); CLARITY,URINE TURBID; COLOR,URINE YELLOW; GLUCOSE,URINE NEG (NEG); NITRITE,URINE POS (NEG); UROBILINOGEN,URINE 1 mg/dL (0.2 mg/dL); WBC,URINE TNTC /HPF (0-4)
[2019-03-16 17:42] LABS: AMORPHOUS SEDIMENT,UR PRESENT /HPF; BACTERIA,URINE MANY /HPF (0-FEW); SQUAMOUS EPITHELIAL CELL,UR OCC /LPF
[2019-03-16 17:45] LABS: BARBITURATES NEG (NEG); BENZODIAZEPINES NEG (NEG); CANNABINOIDS NEG (NEG); COCAINE NEG (NEG); METHADONE NEG (NEG); OPIATES POS (NEG); PHENCYCLIDINE NEG (NEG)
[2019-03-16 17:50] LABS: AMPHETAMINE/METHAMPHETAMINE NEG (NEG)
[2019-03-16] MEDS: MVI, ADULT NO.4 WITH VIT K 10 ML, THIAMINE INJ 100 MG, FOLIC ACID INJ 1 MG in IV NORMAL... IV SCH ×4 (17:55)
[2019-03-16 18:40] LABS: CALCIUM 8.9 mg/dL (8.5-10.1); CREATININE 0.6 mg/dL (0.6-1.0); GFR 113.1; POTASSIUM 3.1 mmol/L (3.5-5.1)
[2019-03-16 19:41] VITALS: BP 119/77
[2019-03-16] MEDS: CIPROFLOXACIN HCL 500 MG TABLET PO SCH (20:21)
[2019-03-16] MEDS: LACTOBACILLUS RHAMNOSUS GG 1 CAPSULE. PO SCH (20:21)
--- NOTE | 2019-03-16 21:34 | NUR ---
At shift change, pt heard crying from nursing station. When this nurse went in to check on pt, pt is tearful and restless in bed. When asked what was the matter, pt report that her stomach hurt and that its got to be cancer. Attempted to reassure pt, with little success. Pt alert and orient to person and place only. VSS. Pt given Ativan per CIWA protocol. Bed alarm in place.
[2019-03-16 22:11] VITALS: BP 114/76
[2019-03-17] MEDS: POTASSIUM CL 40MEQ IN 0.9%NACL 1,000 ML IV SCH ×3 (00:05→20:05)
[2019-03-17] MEDS: HYDROcodone/APAP 5/325MG 1 TAB TABLET PO PRN ×2 (03:34→07:53)
[2019-03-17 05:42] VITALS: BP 110/71
[2019-03-17 06:42] LABS: ALBUMIN 2.6 g/dL (3.4-5.0); CALCIUM 8.4 mg/dL (8.5-10.1); CREATININE 0.5 mg/dL (0.6-1.0); GFR 139.6; TOTAL BILIRUBIN 0.6 mg/dL (0.2-1.0); TOTAL PROTEIN 5.3 g/dL (6.4-8.2)
[2019-03-17 06:43] LABS: HEMATOCRIT 31.3 % (36.0-47.0); HEMOGLOBIN 10.8 g/dL (12.0-15.5); RED BLOOD COUNT 3.29 x10^6/uL (3.50-5.40); RED CELL DISTRIBUTION WIDTH 13.2 % (11.5-14.5); WHITE BLOOD COUNT 5.8 x10^3/uL (4.0-11.0)
[2019-03-17 06:44] LABS: POTASSIUM 2.8 mmol/L (3.5-5.1)
[2019-03-17] MEDS ORDERED: POTASSIUM CHLORIDE 20 MEQ TABLET.ER. PO ONE ×3 (07:15→09:15)
[2019-03-17] MEDS: MULTIVITAMIN with MINERAL TABLET. PO SCH (07:52)
[2019-03-17] MEDS: LACTOBACILLUS RHAMNOSUS GG 1 CAPSULE. PO SCH ×2 (07:52→21:07)
[2019-03-17] MEDS: CIPROFLOXACIN HCL 500 MG TABLET PO SCH ×2 (07:53→21:07)
[2019-03-17] MEDS: FOLIC ACID 1 MG TABLET PO SCH (07:53)
[2019-03-17] MEDS: THIAMINE IM 200 MG/2 ML VIAL. IM SCH (07:54)
--- NOTE | 2019-03-17 08:44 | RAD ---
EXAM: Abdomen sonogram. HISTORY: Abnormal liver function laboratory values. TECHNIQUE: Sonographic imaging of the abdomen was performed. COMPARISON: CT dated 01/29/2019. FINDINGS: The liver is mildly enlarged. No focal hepatic lesion is seen. There is hepatic steatosis. The gallbladder is surgically absent. The common bile duct is slightly dilated for patient age, measuring 6 mm. The right kidney, pancreas and inferior vena cava are unremarkable. The aorta is not assessed. IMPRESSION: 1. Hepatic steatosis and mild hepatomegaly. Note is made of a tiny hypodense lesion within the right hepatic lobe demonstrated on the recent CT demonstrates no sonographic correlate, likely obscured due to small size. 2. Cholecystectomy. There is mild common bile duct dilatation, within limits for reservoir effect status post cholecystectomy. Electronically signed by: Debra Canales MD (03/17/2019 8:41 AM) [facility]
[2019-03-17] MEDS: NICOTINE 21MG PATCH. TD SCH (09:35)
[2019-03-17 11:10] LABS: CALCIUM 8.6 mg/dL (8.5-10.1); CREATININE 0.5 mg/dL (0.6-1.0); GFR 139.6; POTASSIUM 4.2 mmol/L (3.5-5.1)
[2019-03-17 11:13] VITALS: BP 99/65
[2019-03-17] MEDS: POTASSIUM CHLORIDE 20 MEQ TABLET.ER. PO SCH ×2 (14:00→21:08)
[2019-03-17 15:00] VITALS: BP 84/56
[2019-03-17] MEDS: MVI, ADULT NO.4 WITH VIT K 10 ML, THIAMINE INJ 100 MG, FOLIC ACID INJ 1 MG in IV NORMAL... IV SCH ×4 (18:12)
--- NOTE | 2019-03-17 18:38 | PDOC ---
Exam Note: Joshua Note: Please also refer to the separate dictated note~for this date of service dictated separately.~Patient seen individually. Discussed the patient with Nursing staff reviewed the chart.~Reviewed interim history and current functioning. Reviewed vital signs,~Labs/ Radiology~and current medications noted below. Continue current treatment with the changes noted in the dictated addendum note Assessment: Vital Signs/I&O: Vital Signs Date Time Temp Pulse Resp B/P (MAP) Pulse Ox O2 Delivery O2 Flow Rate FiO2 03/17/19 15:00 107 84/56 (65) 97 Room Air 03/17/19 11:13 97.8 03/17/19 05:42 16 I & O 03/16/19 03/16/19 03/17/19 14:59 22:59 06:59 Intake Total 550 ml 1240 ml 1195.71 ml Balance 550 ml 1240 ml 1195.71 ml Labs: Laboratory Tests Test 03/17/19 06:11 03/17/19 10:55 White Blood Count 5.8 x10^3/uL (4.0-11.0) Red Blood Count 3.29 x10^6/uL (3.50-5.40) L Hemoglobin 10.8 g/dL (12.0-15.5) L Hematocrit 31.3 % (36.0-47.0) L Mean Corpuscular Volume 95 fL (79-100) Mean Corpuscular Hemoglobin 33 pg (25-35) Mean Corpuscular Hemoglobin Concent 35 g/dL (31-37) Red Cell Distribution Width 13.2 % (11.5-14.5) Platelet Count 108 x10^3/uL (140-400) L Prothrombin Time 10.5 SEC (9.4-11.4) Prothrombin Time INR 1.0 (0.9-1.1) Sodium Level 143 mmol/L (136-145) 144 mmol/L (136-145) Potassium Level 2.8 mmol/L (3.5-5.1) *L 4.2 mmol/L (3.5-5.1) # Chloride Level 106 mmol/L (98-107) 108 mmol/L (98-107) H Carbon Dioxide Level 32 mmol/L (21-32) 34 mmol/L (21-32) H Anion Gap 5 (6-14) L 2 (6-14) L Blood Urea Nitrogen 6 mg/dL (7-20) L 5 mg/dL (7-20) L Creatinine 0.5 mg/dL (0.6-1.0) L 0.5 mg/dL (0.6-1.0) L Estimated GFR (Cockcroft-Gault) 139.6 139.6 BUN/Creatinine Ratio 12 (6-20) Glucose Level 90 mg/dL (70-99) 93 mg/dL (70-99) Calcium Level 8.4 mg/dL (8.5-10.1) L 8.6 mg/dL (8.5-10.1) Total Bilirubin 0.6 mg/dL (0.2-1.0) Aspartate Amino Transferase (AST) 62 U/L (15-37) H Alanine Aminotransferase (ALT) 127 U/L (14-59) H Alkaline Phosphatase 218 U/L (46-116) H Total Protein 5.3 g/dL (6.4-8.2) L Albumin 2.6 g/dL (3.4-5.0) L Albumin/Globulin Ratio 1.0 (1.0-1.7) Current Medications: Meds: Current Medications Medications (Trade) Dose Ordered Sig/Roberta Route PRN Reason Start Time Stop Time Status Last Admin Dose Admin Multivitamins/ Calcium (Thera-M Plus) 1 tab DAILY PO 03/17/19 09:00 03/17/19 07:52 Folic Acid (Folic Acid) 1 mg DAILY PO 03/17/19 09:00 03/17/19 07:53 Thiamine HCl (Thiamine Im) 100 mg DAILY IM 03/17/19 09:00 03/22/19 08:59 03/17/19 07:54 Ciprofloxacin (Cipro) 500 mg BID PO 03/16/19 21:00 03/17/19 07:53 Lactobacillus Rhamnosus (Culturelle) 1 cap BID PO 03/16/19 21:00 03/17/19 07:52 Potassium Chloride (Klor-Con) 40 meq 1X ONCE PO 03/17/19 07:15 03/17/19 07:27 DC 03/17/19 07:52 Potassium Chloride (Klor-Con) 40 meq 1X ONCE PO 03/17/19 08:15 03/17/19 08:16 DC 03/17/19 08:41 Potassium Chloride (Klor-Con) 40 meq 1X ONCE PO 03/17/19 09:15 03/17/19 09:17 DC 03/17/19 09:35 Nicotine (Nicoderm Cq 21mg) 1 patch DAILY TD 03/17/19 09:30 03/17/19 09:35 I have reviewed the current psychotropics carefully including drug interactions. Risk benefit ratio favors no change other than as noted in my dictated progress note. 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
[2019-03-17 19:48] VITALS: BP 127/90
[2019-03-17] MEDS ORDERED: MIRTAZAPINE 30 MG TABLET PO SCH (21:00)
[2019-03-17] MEDS ORDERED: QUEtiapine 50 MG TABLET. PO SCH (21:00)
[2019-03-17 22:44] VITALS: BP 116/81
[2019-03-18] MEDS: HYDROcodone/APAP 5/325MG 1 TAB TABLET PO PRN ×3 (01:04→22:30)
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
[2019-03-18] MEDS: POTASSIUM CL 40MEQ IN 0.9%NACL 1,000 ML IV SCH ×2 (05:23→16:59)
[2019-03-18 06:10] VITALS: BP 134/86
[2019-03-18 06:13] LABS: CALCIUM 8.2 mg/dL (8.5-10.1); CREATININE 0.4 mg/dL (0.6-1.0); GFR 180.6; POTASSIUM 3.9 mmol/L (3.5-5.1)
--- NOTE | 2019-03-18 07:22 | NUR ---
Nursing Note: While assisting pt to the bathroom this morning, pt stated that she needed to talk to this nurse for a few minutes. Pt stated to this nurse "my in 2009 but he still talks to me all the time and he cries all the time. He needs to go to heaven but he can't go. He cries all the time and I cry all the time and I need him to go to heaven." Pt then began speaking to her , who was not in the room, stating "I love you and I want you to stay with me but you're not happy. You need to go to heaven." Pt was tearful and repeatedly made these statements to this nurse while this nurse assisted with cares. Pt's nurse, Cathi, notified of pt's statements.
[2019-03-18] MEDS: NICOTINE 21MG PATCH. TD SCH (07:27)
[2019-03-18] MEDS: LACTOBACILLUS RHAMNOSUS GG 1 CAPSULE. PO SCH ×2 (07:27→21:47)
[2019-03-18] MEDS: FOLIC ACID 1 MG TABLET PO SCH (07:28)
[2019-03-18] MEDS: POTASSIUM CHLORIDE 20 MEQ TABLET.ER. PO SCH ×3 (07:28→21:47)
[2019-03-18] MEDS: CIPROFLOXACIN HCL 500 MG TABLET PO SCH ×2 (07:28→21:47)
[2019-03-18] MEDS: MULTIVITAMIN with MINERAL TABLET. PO SCH (07:28)
[2019-03-18] MEDS ORDERED: NON FORMULARY ITEM (Dextroamphetamine/Amphetamine (Adderall Xr 30 Mg Capsule) 1 CAP) PO SCH (07:30)
[2019-03-18] MEDS: THIAMINE IM 200 MG/2 ML VIAL. IM SCH (09:00)
[2019-03-18 11:25] VITALS: BP 117/82
[2019-03-18] MEDS ORDERED: BENZ0.5T32 PO (14:26)
[2019-03-18] MEDS ORDERED: ATOM25CA PO (14:26)
[2019-03-18] MEDS ORDERED: CITA40TA5 PO (14:26)
[2019-03-18] MEDS ORDERED: ZIPR20CA3 PO (14:26)
[2019-03-18] MEDS: CITALOPRAM 40 MG PO SCH (14:30)
[2019-03-18 15:00] VITALS: BP 120/84
[2019-03-18] MEDS: ATOMOXETINE 25 MG PO SCH (15:00)
[2019-03-18] MEDS: MVI, ADULT NO.4 WITH VIT K 10 ML, THIAMINE INJ 100 MG, FOLIC ACID INJ 1 MG in IV NORMAL... IV SCH ×4 (17:00)
[2019-03-18 19:36] VITALS: BP 105/74
--- NOTE | 2019-03-18 20:37 | NUR ---
Pt in room talking to self. Ask pt who she was talking to, pt reported that she was talking to her . Attempted to reorient pt. Pt told this RN, that her brother just got here and it was a family matter and that I need to mind my own business. Pt given prn Ativan as ordered. Pt assisted to bed, bed alarm in place.
[2019-03-18] MEDS ORDERED: MIRTAZAPINE 30 MG TABLET PO SCH (21:00)
[2019-03-18] MEDS ORDERED: BENZTROPINE MESYLATE 0.5 MG TABLET PO SCH (21:00)
[2019-03-18] MEDS ORDERED: ZIPRASIDONE HCL 20 MG PO SCH (21:00)
[2019-03-18] MEDS ORDERED: BENZTROPINE MESYLATE PO SCH (21:00)
[2019-03-18] MEDS: ZIPRASIDONE 20 MG CAPSULE. PO SCH ×2 (21:47→21:48)
[2019-03-18] MEDS: NYSTATIN 100,000 UNITS/ML ORAL SUSPENSION 60ML BOTTLE. SWSW SCH (21:49)
--- NOTE | 2019-03-18 22:11 | PDOC ---
Exam Note: Joshua Note: Please also refer to the separate dictated note~for this date of service dictated separately.~Patient seen individually. Discussed the patient with Nursing staff reviewed the chart.~Reviewed interim history and current functioning. Reviewed vital signs,~Labs/ Radiology~and current medications noted below. Continue current treatment with the changes noted in the dictated addendum note Assessment: Vital Signs/I&O: Vital Signs Date Time Temp Pulse Resp B/P (MAP) Pulse Ox O2 Delivery O2 Flow Rate FiO2 03/18/19 19:36 120 20 105/74 (84) 97 Room Air 03/18/19 15:00 97.9 I & O 03/17/19 03/17/19 03/18/19 14:59 22:59 06:59 Intake Total 180 ml 2572.0 ml Balance 180 ml 2572.0 ml Labs: Laboratory Tests Test 03/18/19 05:54 Sodium Level 145 mmol/L (136-145) Potassium Level 3.9 mmol/L (3.5-5.1) Chloride Level 107 mmol/L (98-107) Carbon Dioxide Level 31 mmol/L (21-32) Anion Gap 7 (6-14) Blood Urea Nitrogen 4 mg/dL (7-20) L Creatinine 0.4 mg/dL (0.6-1.0) L Estimated GFR (Cockcroft-Gault) 180.6 Glucose Level 92 mg/dL (70-99) Calcium Level 8.2 mg/dL (8.5-10.1) L Current Medications: Meds: Current Medications Medications (Trade) Dose Ordered Sig/Roberta Route PRN Reason Start Time Stop Time Status Last Admin Dose Admin Non-Formulary Medication 1 ea DAILY PO 03/18/19 14:30 03/18/19 14:30 Benztropine Mesylate (Cogentin) 0.5 mg QHS PO 03/18/19 21:00 03/18/19 21:49 Ziprasidone (Geodon) 20 mg BID PO 03/18/19 21:00 03/18/19 21:47 Non-Formulary Medication 2 ea DAILY PO 03/18/19 15:00 03/18/19 15:00 Ziprasidone (Geodon) 20 mg BID PO 03/18/19 21:00 03/18/19 21:48 Nystatin (Mycostatin) 5 ml QIDAFTMEAL SWSW 03/18/19 21:00 03/18/19 21:49 Mirtazapine (Remeron) 30 mg QHS PO 03/18/19 21:00 03/18/19 21:48 I have reviewed the current psychotropics carefully including drug interactions. Risk benefit ratio favors no change other than as noted in my dictated progress note. 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
[2019-03-18 23:18] VITALS: BP 123/87
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
[2019-03-19] MEDS: POTASSIUM CL 40MEQ IN 0.9%NACL 1,000 ML IV SCH (02:53)
--- NOTE | 2019-03-19 05:18 | PN ---
DATE: SUBJECTIVE: The patient is sitting slightly propped up, extremely emotional, crying and delusional, stating that her stuck to her for the last 9 years, transpired that she was taking his ____ medication and her brother brought her today ____ immediately. OBJECTIVE: GENERAL: On examining her, she looked well and was clearly in no apparent respiratory distress, slightly pale, but no jaundice, cyanosis, adenopathy or thyromegaly. No jugular venous distention. No limb edema. VITAL SIGNS: Her heart rate was 114, blood pressure was 117/82, temperature was 97.9, respiratory rate was 18 and oxygen saturation was 98% on room air. HEAD, EYES, EARS, NOSE AND THROAT: Showed she is normocephalic, atraumatic. NECK: Supple. HEART: Showed normal first and second heart sounds. No gallop, rub or murmur. CHEST: Clear to auscultation. No crepitation or rhonchi. ABDOMEN: Distended, soft, nontender. No guarding or rigidity. No organomegaly. All hernial orifice intact. Bowel sounds normal. NEUROLOGIC: She is awake, alert, but all her cranial nerves are intact. She has right-sided hemiparesis. Her intake was 3000. No output was recorded. LABORATORY DATA: Her lab work this morning showed a serum sodium 145, potassium 3.9, chloride 107, bicarbonate 31, anion gap of 7, BUN 4, creatinine 0.4, estimated GFR was 180 mL per minute. Her glucose was 92, calcium was 8.2. Her white cell count was 5800, hemoglobin 11, hematocrit 31, MCV 95, and platelet count of 108,000. Her prothrombin time was 10.5, INR of 1. Urinalysis showed that she has too numerous to count wbc's and many bacteria; however, the culture and sensitivity still pending at the time of this dictation. ASSESSMENT: 1. Altered mental status. The patient was found outside a liquor store waiting to open. She continued to be extremely paranoid, bipolar, mixed with psychosis. 2. Hypokalemia, resolved. 3. Alcoholism, alcohol dependence, which she is on alcohol withdrawal protocol. 4. Urinary tract infection for which she is on oral ciprofloxacin. 5. Traumatic brain injury with right-sided hemiparesis. 6. Impaired kidney function, likely impaired liver enzymes, likely hepatic steatosis, alcoholic liver disease. She is status post cholecystectomy. PLAN: To resume all her medications that were brought today by her brother. We will wait for the urine culture and hopefully discharge her tomorrow. We did start her on Nicoderm patch for 21 mg topically daily as she smokes a pack a day. FAZAL GARCÍA MD DR: ANTHONY/maria a JOB#: [id number] / [id number]
[2019-03-19 07:33] VITALS: BP 117/88
[2019-03-19] MEDS ORDERED: ATOMOXETINE HCL PO SCH (09:00)
[2019-03-19] MEDS ORDERED: NON FORMULARY ITEM (Citalopram Hydrobromide (Citalopram Hbr) 40 MG) PO SCH (09:00)
[2019-03-19] MEDS: NYSTATIN 100,000 UNITS/ML ORAL SUSPENSION 60ML BOTTLE. SWSW SCH (09:12)
[2019-03-19] MEDS: ZIPRASIDONE 20 MG CAPSULE. PO SCH ×2 (09:13→09:16)
[2019-03-19] MEDS: FOLIC ACID 1 MG TABLET PO SCH (09:13)
[2019-03-19] MEDS: LACTOBACILLUS RHAMNOSUS GG 1 CAPSULE. PO SCH (09:13)
[2019-03-19] MEDS: THIAMINE IM 200 MG/2 ML VIAL. IM SCH (09:13)
[2019-03-19] MEDS: NICOTINE 21MG PATCH. TD SCH (09:13)
[2019-03-19] MEDS: CIPROFLOXACIN HCL 500 MG TABLET PO SCH (09:14)
[2019-03-19] MEDS: POTASSIUM CHLORIDE 20 MEQ TABLET.ER. PO SCH (09:14)
[2019-03-19] MEDS: MULTIVITAMIN with MINERAL TABLET. PO SCH (09:14)
[2019-03-19] MEDS: ATOMOXETINE 25 MG PO SCH (09:15)
[2019-03-19] MEDS: CITALOPRAM 40 MG PO SCH (09:15)
--- NOTE | 2019-03-19 09:52 | PN ---
DATE: 03/18/2019 PSYCHIATRIC PROGRESS NOTE This late entry 03/18/2019 covers elements not covered in my initial note. SUBJECTIVE: I met with the patient evening of 03/18/2019. The patient has been actively hallucinating per nursing staff, talking and responding to people when no one is around. She is talking about her being inside of her. We have received clarification on the psychotropic she was taking at home, which included Geodon 20 mg twice a day. She has since been started on Tegretol 200 mg p.o. at bedtime as a mood stabilizer. MENTAL STATUS EXAM: The patient was seen individually in her room. She is somewhat sedated, withdrawn, minimizes her hallucinations. There is no active suicidal or homicidal ideation. Reportedly, the [facility] is unable to help facilitate her transition to an inpatient psychiatry service and the patient is not willing for this. No active suicidal or homicidal ideation. The attention span short. Language function intact. Intellect and overall cognition somewhat impaired due to her head injury. IMPRESSION: Unchanged from initial note. PLAN: Increase Geodon to 40 mg twice a day. Continue rest of the psychotropics. If the patient does not transition to inpatient psychiatry, she should probably go through the walk-in clinic at the [facility], which I believe is operational Friday through Friday-12. In that way, she can at least continue with outpatient psychiatric treatment and perhaps the [facility] can consider day hospital for her as well. KRUPA JAMES MD DR: MILA/maria a JOB#: [id number] / [id number]
[2019-03-19 11:00] VITALS: BP 116/83
[2019-03-19] MEDS: HYDROcodone/APAP 5/325MG 1 TAB TABLET PO PRN (11:00)
[2019-03-19 12:46] LABS: BASO % 0 % (0-3); EOS # 0.1 x10^3/uL (0.0-0.7); EOS % 1 % (0-3); HEMATOCRIT 37.5 % (36.0-47.0); HEMOGLOBIN 12.5 g/dL (12.0-15.5); LYMPH # 1.3 x10^3/uL (1.0-4.8); LYMPH % 24 % (24-48); MEAN CORPUSCULAR HEMOGLOBIN 33 pg (25-35); MEAN CORPUSCULAR HGB CONC 33 g/dL (31-37); MEAN CORPUSCULAR VOLUME 98 fL (79-100); MONO # 0.4 x10^3/uL (0.0-1.1); MONO % 7 % (0-9); NEUT # 3.7 x10^3uL (1.8-7.7); NEUT % 67 % (31-73); PLATELET COUNT 115 x10^3/uL (140-400); RED BLOOD COUNT 3.83 x10^6/uL (3.50-5.40); RED CELL DISTRIBUTION WIDTH 13.4 % (11.5-14.5); WHITE BLOOD COUNT 5.5 x10^3/uL (4.0-11.0)
[2019-03-19 12:58] LABS: CALCIUM 9.1 mg/dL (8.5-10.1); CREATININE 0.5 mg/dL (0.6-1.0); GFR 139.6; TOTAL BILIRUBIN 0.3 mg/dL (0.2-1.0); TOTAL PROTEIN 6.1 g/dL (6.4-8.2)
[2019-03-19] MEDS ORDERED: ZIPR40CA3 PO (13:39)
[2019-03-19] MEDS ORDERED: CARB200T PO (13:39)
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
--- NOTE | 2019-03-19 16:12 | NUR ---
Pt discharged home for self care. Pt left unit in stable condition. Pt given written and verbal discharge, follow up and medication instructions. Pt became agitated when asked to wait in her room for her brother or father to come pick her up. Against this nurses wishes, pt left building in order to smoke. This nurse had explained to pt the desire to go over discharge instructions with one of her family members, but pt refused this request.
[2019-03-20] MEDS ORDERED: CARB200T PO (19:22)
== END 2019-03-19 16:00 | disposition home or self-care (01) | DRG 640 ==
LOC: ER 09:24 → 1 SOUTH 11:30
PROVIDERS: ADMIT Internal Medicine; ATTEND Internal Medicine
DX: E87.6 Hypokalemia (principal); G92 Toxic encephalopathy; N39.0 Urinary tract infection, site not specified; F31.60 Bipolar disorder, current episode mixed, unspecified; G81.91 Hemiplegia, unspecified affecting right dominant side; F41.9 Anxiety disorder, unspecified; B96.20 Unspecified Escherichia coli [E. coli] as the cause of diseases classified elsewhere; F02.80 Dementia in other diseases classified elsewhere, unspecified severity, without behavioral disturbance, psychotic disturbance, mood disturbance, and anxiety; F90.9 Attention-deficit hyperactivity disorder, unspecified type; G47.00 Insomnia, unspecified; F10.10 Alcohol abuse, uncomplicated; G93.89 Other specified disorders of brain; K70.9 Alcoholic liver disease, unspecified; K76.0 Fatty (change of) liver, not elsewhere classified; K83.8 Other specified diseases of biliary tract; N28.9 Disorder of kidney and ureter, unspecified; Z79.899 Other long term (current) drug therapy; Z87.440 Personal history of urinary (tract) infections; Z87.891 Personal history of nicotine dependence; Z90.49 Acquired absence of other specified parts of digestive tract; Z91.5 Personal history of self-harm
CPT/HCPCS: 36415; 70450; 76705; 80048; 80053; 80307; 81001; 85025; 85027; 85610; 87086; 87186; 93005; 96365; 96366; G0480; J1885; J2060; 97110; 97116; 97535; 99285-25; J7030

== ENCOUNTER 2019-03-20 10:59 | Inpatient (IN) | payer MEDICARE, MEDICAID ==
[2019-03-20] VITALS (7 sets, daily range): BP systolic 99–122; BP diastolic 65–99
[~2019-03-20] VITALS: Ht 167.6 cm; Wt 57.6 kg
[~2019-03-20 10:59] MED LIST changes: +ATOM25CA PO; +BENZ0.5T32 PO; +CARB200T PO; +CITA40TA5 PO; +HYDR-2155 PO; +ZIPR20CA3 PO; +ZIPR40CA3 PO
[2019-03-20] MEDS ORDERED: MVI, ADULT NO.4 WITH VIT K 10 ML, FOLIC ACID SYRINGE for ER 1 MG, THIAMINE INJ 100 MG i... IV ONE ×4 (11:15)
[2019-03-20 12:36] LABS: BASO % 0 % (0-3); EOS % 0 % (0-3); HEMATOCRIT 39.1 % (36.0-47.0); LYMPH # 1.5 x10^3/uL (1.0-4.8); LYMPH % 29 % (24-48); MEAN CORPUSCULAR HEMOGLOBIN 33 pg (25-35); MEAN CORPUSCULAR HGB CONC 33 g/dL (31-37); MEAN CORPUSCULAR VOLUME 100 fL (79-100); MONO # 0.3 x10^3/uL (0.0-1.1); MONO % 6 % (0-9); NEUT # 3.2 x10^3uL (1.8-7.7); NEUT % 64 % (31-73); PLATELET COUNT 182 x10^3/uL (140-400); RED BLOOD COUNT 3.93 x10^6/uL (3.50-5.40); RED CELL DISTRIBUTION WIDTH 14.3 % (11.5-14.5)
[2019-03-20 12:44] LABS: BARBITURATES NEG (NEG); BENZODIAZEPINES NEG (NEG); CANNABINOIDS NEG (NEG); COCAINE NEG (NEG); METHADONE NEG (NEG); OPIATES NEG (NEG); PHENCYCLIDINE NEG (NEG)
[2019-03-20 12:46] LABS: AMPHETAMINE/METHAMPHETAMINE NEG (NEG)
[2019-03-20 12:48] LABS: ALBUMIN 3.2 g/dL (3.4-5.0); ALBUMIN/GLOBULIN RATIO 1.1 (1.0-1.7); CALCIUM 8.1 mg/dL (8.5-10.1); CREATININE 0.5 mg/dL (0.6-1.0); GFR 139.6; POTASSIUM 3.5 mmol/L (3.5-5.1); TOTAL BILIRUBIN 0.1 mg/dL (0.2-1.0); TOTAL PROTEIN 6.1 g/dL (6.4-8.2)
[2019-03-20 12:48] LABS: BILIRUBIN,URINE NEG (NEG); CLARITY,URINE TURBID; COLOR,URINE YELLOW; GLUCOSE,URINE NEG (NEG)
[2019-03-20 12:49] LABS: BACTERIA,URINE MANY /HPF (0-FEW); NITRITE,URINE POS (NEG); RBC,URINE OCC /HPF (0-2); SQUAMOUS EPITHELIAL CELL,UR MOD /LPF; UROBILINOGEN,URINE 1 mg/dL (0.2 mg/dL)
[2019-03-20] MEDS ORDERED: IV NORMAL SALINE 50ML 50 ML ONE (13:13)
[2019-03-20] MEDS ORDERED: cefTRIAXone SODIUM 1 GM VIAL ONE (13:14)
[2019-03-20] MEDS ORDERED: cloNIDine HCL 0.1 MG TABLET PO PRN (15:15)
[2019-03-20] MEDS ORDERED: diphenhydrAMINE 50 MG/ML VIAL IVP PRN (15:15)
[2019-03-20] MEDS ORDERED: ACETAMINOPHEN 325 MG TABLET PO PRN (15:15)
[2019-03-20] MEDS ORDERED: LORazepam 1 MG TABLET PO PRN (15:15)
[2019-03-20] MEDS ORDERED: ONDANSETRON PF 4 MG/2 ML VIAL. IV PRN (15:15)
[2019-03-20] MEDS ORDERED: HALOPERIDOL LACT 5 MG/ML VIAL. IM PRN (15:15)
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
[2019-03-20] MEDS ORDERED: CARB200T PO (19:22)
[2019-03-20] MEDS: ZIPRASIDONE 40 MG CAPSULE. PO SCH (20:40)
[2019-03-20] MEDS: ACETAMINOPHEN 325 MG TABLET PO SCH (20:41)
[2019-03-20] MEDS: MIRTAZAPINE 30 MG TABLET PO SCH (20:41)
[2019-03-20] MEDS: ATOMOXETINE HCL PO SCH (20:41)
[2019-03-20] MEDS: BENZTROPINE MESYLATE 0.5 MG TABLET PO SCH (20:41)
[2019-03-20] MEDS ORDERED: QUEtiapine 50 MG TABLET. PO SCH (21:00)
[2019-03-21] VITALS (9 sets, daily range): BP systolic 102–132; BP diastolic 52–91
[2019-03-21] MEDS: HYDROcodone/APAP 5/325MG 1 TAB TABLET PO PRN ×2 (05:45→11:06)
[2019-03-21] MEDS: CITALOPRAM 20 MG TABLET. PO SCH (08:42)
[2019-03-21] MEDS: carBAMazepine 200 MG TABLET PO SCH (08:42)
[2019-03-21] MEDS: ZIPRASIDONE 40 MG CAPSULE. PO SCH ×2 (08:42→20:06)
[2019-03-21] MEDS: ACETAMINOPHEN 325 MG TABLET PO SCH ×4 (08:43→20:05)
[2019-03-21] MEDS: ATOMOXETINE HCL PO SCH ×2 (08:43→20:07)
[2019-03-21] MEDS ORDERED: MVI, ADULT NO.4 WITH VIT K 10 ML, THIAMINE INJ 100 MG, FOLIC ACID INJ 1 MG in IV NORMAL... IV SCH ×4 (09:00)
[2019-03-21] MEDS: LORazepam 1 MG TABLET PO PRN ×3 (11:06→21:28)
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
[2019-03-21] MEDS: BENZTROPINE MESYLATE 0.5 MG TABLET PO SCH (20:05)
[2019-03-21] MEDS: MIRTAZAPINE 30 MG TABLET PO SCH (20:05)
[2019-03-22] MEDS: LORazepam 1 MG TABLET PO PRN ×2 (04:42→08:58)
[2019-03-22 06:32] LABS: HEMATOCRIT 32.9 % (36.0-47.0); HEMOGLOBIN 11.2 g/dL (12.0-15.5); RED BLOOD COUNT 3.38 x10^6/uL (3.50-5.40); WHITE BLOOD COUNT 3.6 x10^3/uL (4.0-11.0)
[2019-03-22 06:47] LABS: ALBUMIN 2.6 g/dL (3.4-5.0); ALBUMIN/GLOBULIN RATIO 0.9 (1.0-1.7); CALCIUM 8.4 mg/dL (8.5-10.1); CREATININE 0.5 mg/dL (0.6-1.0); GFR 139.6; TOTAL BILIRUBIN 0.2 mg/dL (0.2-1.0); TOTAL PROTEIN 5.5 g/dL (6.4-8.2)
[2019-03-22 06:50] LABS: POTASSIUM 2.7 mmol/L (3.5-5.1)
[2019-03-22] MEDS: POTASSIUM CHLORIDE 20 MEQ TABLET.ER. PO SCH ×4 (07:16→09:49)
[2019-03-22] MEDS: CITALOPRAM 20 MG TABLET. PO SCH (08:02)
[2019-03-22] MEDS: carBAMazepine 200 MG TABLET PO SCH (08:02)
[2019-03-22] MEDS: ACETAMINOPHEN 325 MG TABLET PO SCH ×3 (08:02→13:34)
[2019-03-22] MEDS: ZIPRASIDONE 40 MG CAPSULE. PO SCH (08:03)
[2019-03-22] MEDS ORDERED: THIAMINE 100 MG TABLET. PO SCH (09:00)
[2019-03-22] MEDS ORDERED: MVI, ADULT NO.4 WITH VIT K 10 ML, THIAMINE INJ 100 MG, FOLIC ACID INJ 1 MG in IV NORMAL... IV SCH ×4 (09:00)
[2019-03-22] MEDS ORDERED: FOLIC ACID 1 MG TABLET PO SCH (09:00)
[2019-03-22] MEDS ORDERED: MULTIVITAMIN I-VITE TABLET. PO SCH (09:00)
[2019-03-22] MEDS: ATOMOXETINE HCL PO SCH (09:00)
[2019-03-22 09:56] VITALS: BP 102/72
[2019-03-22 12:31] LABS: ALBUMIN 2.8 g/dL (3.4-5.0); ALBUMIN/GLOBULIN RATIO 0.9 (1.0-1.7); CALCIUM 8.7 mg/dL (8.5-10.1); CREATININE 0.5 mg/dL (0.6-1.0); GFR 139.6; POTASSIUM 4.8 mmol/L (3.5-5.1); TOTAL BILIRUBIN 0.3 mg/dL (0.2-1.0); TOTAL PROTEIN 5.8 g/dL (6.4-8.2)
[2019-03-22 12:44] LABS: HEMATOCRIT 34.8 % (36.0-47.0); HEMOGLOBIN 11.6 g/dL (12.0-15.5); RED BLOOD COUNT 3.53 x10^6/uL (3.50-5.40); RED CELL DISTRIBUTION WIDTH 14.3 % (11.5-14.5); WHITE BLOOD COUNT 3.8 x10^3/uL (4.0-11.0)
--- NOTE | 2019-03-22 14:03 | PN ---
DATE: 03/21/2019 SUBJECTIVE: The patient was admitted last night for alcohol detoxification and for appropriate placement in psychiatric facility. When she woke up this morning, she was adamant and she wants to leave against medical advice and we did contact the psychiatrist who confirmed that the patient has no mental capacity to make medical decision for herself and he reiterated that she has to be kept in the hospital. The psychiatrist basically reiterated that she does not believe the patient has the capacity to make medical decisions at this time and she therefore does not have the capacity to leave against medical advice and can be held against ____ guardian or healthcare proxy who in this case appears to be her brother. She encouraged her brother to bring copies of the legal paper work. He visited in this regard to the hospital. She believes the patient needs to be placed in a secure facility for her own protection as her cognitive impairment limit her ability to make rational decisions and she is unable to control her behavior to a level that would seek ensure her safety on her own. PHYSICAL EXAMINATION: GENERAL: When I saw her this morning, she looked well and was clearly in no apparent respiratory distress, slightly pale, not jaundiced, cyanosed or thyromegaly. No jugular venous distention. No limb edema. VITAL SIGNS: Her heart rate was ____ her temperature was 98, respiratory rate was 18 and oxygen saturation was 99% on room air. HEAD, EYES, EARS, NOSE AND THROAT: Showed normocephalic, atraumatic. NECK: Supple. HEART: Showed normal first and second heart sounds with no gallop, rub or murmur. CHEST: Clear to auscultation. No crepitation or rhonchi. ABDOMEN: Distended, soft, nontender. No guarding or rigidity. No organomegaly. ____. Bowel sounds normal. NEUROLOGIC: She was awake, alert, responding appropriately. All cranial nerves intact. She is able to walk unassisted. Her intake and output were incompletely recorded. LABORATORY DATA: No lab work was done this morning. PLAN: To continue with all her medications for the time being. As recommended, continue with the banana bag. She was held against her will ____ by the psychiatrist and will consult our transplant case manager to arrange for her to be placed in secure psych facility tomorrow. FAZAL GARCÍA MD DR: Mike JOB#: [id number] / [id number]
== END 2019-03-22 16:00 | disposition left against medical advice (07) | DRG 894 ==
LOC: ER 10:59 → ICU 16:01
PROVIDERS: ADMIT Internal Medicine; ATTEND Internal Medicine
DX: F10.229 Alcohol dependence with intoxication, unspecified (principal); N39.0 Urinary tract infection, site not specified; F31.64 Bipolar disorder, current episode mixed, severe, with psychotic features; F02.81 Dementia in other diseases classified elsewhere, unspecified severity, with behavioral disturbance; E44.0 Moderate protein-calorie malnutrition; F90.9 Attention-deficit hyperactivity disorder, unspecified type; F17.200 Nicotine dependence, unspecified, uncomplicated; F43.10 Post-traumatic stress disorder, unspecified; Z87.820 Personal history of traumatic brain injury; Z88.0 Allergy status to penicillin; Z88.8 Allergy status to other drugs, medicaments and biological substances; Z68.20 Body mass index [BMI] 20.0-20.9, adult
CPT/HCPCS: 36415; 80053; 80307; 81001; 81025; 85025; 85027; 87086; 87186; 87641; 96365; 96366; 96368; 96375; G0480; J0696; J2060; 99285-25; J7030

== ENCOUNTER 2020-04-08 10:17 | Emergency (ER) | payer MEDICAID, MEDICARE ==
[~2020-04-08] VITALS: Ht 167.6 cm; Wt 54.0 kg
[~2020-04-08 10:17] MED LIST changes: -MIDO5TAB PO; +MIDO5TAB4 PO
[2020-04-08] MEDS ORDERED: IV NORMAL SALINE 1,000ML 1,000 ML IV ONE (10:30)
[2020-04-08] MEDS ORDERED: IOHEXOL 300 MG/ML 75 ML VIAL. IV ONE (10:30)
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
[2020-04-08 11:33] LABS: BASO % 1 % (0-3); EOS # 0.1 x10^3/uL (0.0-0.7); EOS % 4 % (0-3); HEMATOCRIT 40.9 % (36.0-47.0); HEMOGLOBIN 13.5 g/dL (12.0-15.5); LYMPH # 1.4 x10^3/uL (1.0-4.8); LYMPH % 32 % (24-48); MEAN CORPUSCULAR HEMOGLOBIN 31 pg (25-35); MEAN CORPUSCULAR HGB CONC 33 g/dL (31-37); MEAN CORPUSCULAR VOLUME 95 fL (79-100); MONO # 0.4 x10^3/uL (0.0-1.1); MONO % 10 % (0-9); NEUT # 2.3 x10^3uL (1.8-7.7); NEUT % 53 % (31-73); PLATELET COUNT 236 x10^3/uL (140-400); RED CELL DISTRIBUTION WIDTH 13.5 % (11.5-14.5); WHITE BLOOD COUNT 4.2 x10^3/uL (4.0-11.0)
[2020-04-08 11:39] LABS: CALCIUM 8.8 mg/dL (8.5-10.1); CREATININE 0.7 mg/dL (0.6-1.0); GFR 94.2; POTASSIUM 3.9 mmol/L (3.5-5.1)
[2020-04-08 11:39] LABS: FECAL OB PT POSITIVE (NEG)
[2020-04-08 11:46] LABS: ALBUMIN 3.3 g/dL (3.4-5.0); ALBUMIN/GLOBULIN RATIO 0.9 (1.0-1.7); TOTAL BILIRUBIN 0.3 mg/dL (0.2-1.0); TOTAL PROTEIN 6.8 g/dL (6.4-8.2)
[2020-04-08 11:50] LABS: BACTERIA,URINE 0 /HPF (0-FEW); BILIRUBIN,URINE NEG (NEG); CLARITY,URINE CLEAR; COLOR,URINE YELLOW; GLUCOSE,URINE NEG (NEG); NITRITE,URINE NEG (NEG); RBC,URINE OCC /HPF (0-2); SQUAMOUS EPITHELIAL CELL,UR MOD /LPF; UROBILINOGEN,URINE 0.2 mg/dL (0.2 mg/dL)
[2020-04-08 12:06] VITALS: BP 108/65
--- NOTE | 2020-04-08 12:12 | RAD ---
CT ABD PELV W/ IV CONTRST ONLY History: Reason: abdominal pain, rectal bleeding / Spl. Instructions: / History: Comparison: 01/29/2019 Technique: After administration of intravenous contrast, helical CT of the abdomen and pelvis was performed from the lung bases through the ischial tuberosities. Coronal and sagittal reconstructions were obtained. 75 mL of Omnipaque 300 were used. One or more of the following dose reduction techniques were utilized: Automated exposure control (AEC), Adjustment of mA and/or kV according to patient size, Use of iterative reconstruction technique such as ASiR, CT scan done according to ALARA and image gently/image wisely Findings: Motion artifact degrades image quality. The visualized lung bases are clear. Stable hepatic low attenuation along the falciform ligament, probably focal fatty infiltration. Pancreas and spleen are normal. Stable left adrenal 13 mm nodule. Cholecystectomy. Symmetric renal enhancement. There is no focal renal mass. There is no hydronephrosis. The visualized loops of small bowel are normal. The visualized loops of large bowel are normal. There is no evidence of bowel obstruction. Appendix is normal. There is no free fluid. There is no mesenteric or retroperitoneal adenopathy. The abdominal aorta is normal in caliber. IVC filter with similar extravascular extension of tines. Pelvis Findings: Urinary bladder is normal. Uterus and ovaries are present. No pelvic free fluid. There is no pelvic or inguinal adenopathy. There is no acute bony abnormality. IMPRESSION: No acute findings. Electronically signed by: Delbert Sheriff MD (04/08/2020 12:09 PM) [id number]
== END 2020-04-08 12:30 | disposition home or self-care (01) ==
LOC: ER 10:17
DX: N93.9 Abnormal uterine and vaginal bleeding, unspecified (principal); K62.5 Hemorrhage of anus and rectum; F17.210 Nicotine dependence, cigarettes, uncomplicated; F10.20 Alcohol dependence, uncomplicated; Z88.0 Allergy status to penicillin; Z88.8 Allergy status to other drugs, medicaments and biological substances; Y90.9 Presence of alcohol in blood, level not specified
CPT/HCPCS: 36415; 74177; 80053; 81001; 81025; 82274; 85025; 96360; 99285; J7030; Q9967

== ENCOUNTER 2020-04-17 22:10 | Emergency (ER) | payer MEDICARE ==
[~2020-04-17] VITALS: Ht 167.6 cm; Wt 54.0 kg
[2020-04-18] MEDS ORDERED: ZOLP5TAB PO (00:13)
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
[2020-04-18] MEDS ORDERED: ZOLPIDEM 5 MG TABLET. PO ONE (00:30)
[2020-04-18 00:55] VITALS: BP 115/85
== END 2020-04-18 00:55 | disposition home or self-care (01) ==
LOC: ER 22:10
DX: G47.00 Insomnia, unspecified (principal); M79.89 Other specified soft tissue disorders; F17.210 Nicotine dependence, cigarettes, uncomplicated; F10.20 Alcohol dependence, uncomplicated; Z88.0 Allergy status to penicillin; Z88.8 Allergy status to other drugs, medicaments and biological substances; Y90.9 Presence of alcohol in blood, level not specified
CPT/HCPCS: 99283

== ENCOUNTER 2020-05-14 18:56 | Emergency (ER) | payer MEDICARE ==
[~2020-05-14] VITALS: Ht 167.6 cm; Wt 54.0 kg
[~2020-05-14 18:56] MED LIST changes: +ZOLP5TAB PO
[2020-05-14 19:13] VITALS: BP 103/64
[2020-05-14] MEDS ORDERED: ZOLP5TAB PO (19:44)
[2020-05-14] MEDS ORDERED: HYDR-3165 PO (19:44)
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
== END 2020-05-14 19:48 | disposition home or self-care (01) ==
LOC: ER 18:56
DX: G89.29 Other chronic pain (principal); Z76.0 Encounter for issue of repeat prescription; M54.5 Low back pain; M25.512 Pain in left shoulder; F17.210 Nicotine dependence, cigarettes, uncomplicated; Z88.0 Allergy status to penicillin; Z88.8 Allergy status to other drugs, medicaments and biological substances
CPT/HCPCS: 99283

== ENCOUNTER 2020-05-26 09:45 | Emergency (ER) | payer MEDICARE ==
[~2020-05-26] VITALS: Ht 167.6 cm; Wt 54.0 kg
[2020-05-26 10:25] VITALS: BP 161/96
[2020-05-26] MEDS ORDERED: IV NORMAL SALINE 1,000ML 1,000 ML IV ONE (10:45)
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
[2020-05-26] MEDS ORDERED: ONDANSETRON PF 4 MG/2 ML VIAL. ONE (11:22)
[2020-05-26 11:26] LABS: BASO # 0.1 x10^3/uL (0.0-0.2); BASO % 1 % (0-3); EOS # 0.1 x10^3/uL (0.0-0.7); EOS % 1 % (0-3); HEMOGLOBIN 14.6 g/dL (12.0-15.5); LYMPH # 1.7 x10^3/uL (1.0-4.8); LYMPH % 20 % (24-48); MEAN CORPUSCULAR HEMOGLOBIN 32 pg (25-35); MEAN CORPUSCULAR HGB CONC 33 g/dL (31-37); MEAN CORPUSCULAR VOLUME 96 fL (79-100); MONO # 0.6 x10^3/uL (0.0-1.1); MONO % 7 % (0-9); NEUT # 5.8 x10^3uL (1.8-7.7); NEUT % 71 % (31-73); PLATELET COUNT 236 x10^3/uL (140-400); RED BLOOD COUNT 4.56 x10^6/uL (3.50-5.40); RED CELL DISTRIBUTION WIDTH 14.7 % (11.5-14.5); WHITE BLOOD COUNT 8.2 x10^3/uL (4.0-11.0)
[2020-05-26 11:36] LABS: CALCIUM 8.1 mg/dL (8.5-10.1); CREATININE 0.8 mg/dL (0.6-1.0); GFR 80.7; POTASSIUM 3.3 mmol/L (3.5-5.1)
[2020-05-26 11:42] LABS: ALBUMIN 3.5 g/dL (3.4-5.0); TOTAL BILIRUBIN 0.3 mg/dL (0.2-1.0)
[2020-05-27] MEDS ORDERED: BENZ0.5T32 PO (14:50)
[2020-05-27] MEDS ORDERED: MIRT30TA3 PO (14:50)
[2020-05-27] MEDS ORDERED: CITA40TA5 PO (14:50)
== END 2020-05-26 11:48 | disposition left against medical advice (07) ==
LOC: ER 09:45
DX: F22 Delusional disorders (principal); E86.0 Dehydration; F17.210 Nicotine dependence, cigarettes, uncomplicated; F10.20 Alcohol dependence, uncomplicated; Z88.0 Allergy status to penicillin; Z88.8 Allergy status to other drugs, medicaments and biological substances; Y90.9 Presence of alcohol in blood, level not specified
CPT/HCPCS: 36415; 80053; 85025; 96360; 99283; J7030; 99285-25

== ENCOUNTER 2020-05-26 18:57 | Inpatient (IN) | payer MEDICARE ==
[~2020-05-26] VITALS: Ht 167.6 cm; Wt 59.0 kg
[2020-05-26] MEDS ORDERED: IV RINGERS SOLUTION,LACTATED 1,000 ML IV ONE (20:15)
[2020-05-26 20:21] LABS: BASO # 0.1 x10^3/uL (0.0-0.2); BASO % 1 % (0-3); EOS # 0.1 x10^3/uL (0.0-0.7); EOS % 1 % (0-3); HEMATOCRIT 45.9 % (36.0-47.0); HEMOGLOBIN 15.3 g/dL (12.0-15.5); LYMPH # 3.2 x10^3/uL (1.0-4.8); LYMPH % 38 % (24-48); MEAN CORPUSCULAR HEMOGLOBIN 32 pg (25-35); MEAN CORPUSCULAR HGB CONC 33 g/dL (31-37); MEAN CORPUSCULAR VOLUME 96 fL (79-100); MONO # 0.5 x10^3/uL (0.0-1.1); MONO % 6 % (0-9); NEUT # 4.6 x10^3uL (1.8-7.7); NEUT % 54 % (31-73); PLATELET COUNT 258 x10^3/uL (140-400); RED BLOOD COUNT 4.77 x10^6/uL (3.50-5.40); RED CELL DISTRIBUTION WIDTH 14.7 % (11.5-14.5); WHITE BLOOD COUNT 8.5 x10^3/uL (4.0-11.0)
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
[2020-05-26 20:28] LABS: BARBITURATES NEG (NEG); BENZODIAZEPINES NEG (NEG); CANNABINOIDS NEG (NEG); COCAINE NEG (NEG); METHADONE NEG (NEG); OPIATES NEG (NEG); PHENCYCLIDINE NEG (NEG)
[2020-05-26] MEDS ORDERED: MVI, ADULT NO.4 WITH VIT K 10 ML, FOLIC ACID INJ 1 MG, THIAMINE INJ 100 MG in IV RINGER... IV ONE (20:30)
[2020-05-26 20:31] LABS: CALCIUM 8.9 mg/dL (8.5-10.1); CREATININE 0.7 mg/dL (0.6-1.0); GFR 94.2; POTASSIUM 3.2 mmol/L (3.5-5.1)
[2020-05-26 20:34] LABS: AMPHETAMINE/METHAMPHETAMINE NEG (NEG)
[2020-05-26 20:37] LABS: ALBUMIN 3.8 g/dL (3.4-5.0); TOTAL BILIRUBIN 0.5 mg/dL (0.2-1.0); TOTAL PROTEIN 7.6 g/dL (6.4-8.2)
[2020-05-26 20:38] LABS: BILIRUBIN,URINE NEG (NEG); CLARITY,URINE CLEAR; COLOR,URINE STRAW; GLUCOSE,URINE NEG (NEG)
[2020-05-26 20:39] LABS: BACTERIA,URINE 0 /HPF (0-FEW); NITRITE,URINE NEG (NEG); RBC,URINE 0 /HPF (0-2); SQUAMOUS EPITHELIAL CELL,UR OCC /LPF; UROBILINOGEN,URINE 0.2 mg/dL (0.2 mg/dL); WBC,URINE 0 /HPF (0-4)
[2020-05-26 20:47] LABS: U PREG PATIENT NEGATIVE (NEG)
[2020-05-26] MEDS ORDERED: LORazepam 1 MG TABLET PO ONE (21:00)
[2020-05-26] MEDS ORDERED: OLANZapine IM 10 MG VIAL. IM ONE (21:15)
[2020-05-26] MEDS ORDERED: diphenhydrAMINE 50 MG/ML VIAL IVP ONE (21:15)
[2020-05-26] MEDS ORDERED: ONDANSETRON PF 4 MG/2 ML VIAL. IVP PRN (23:00)
--- NOTE | 2020-05-27 01:50 | EKG ---
[address] [address] Test Date: 2020-05-26 Test Time: 20:20:27 Pat Name: HAILY ALBERTO Department: Room: Gender: F Pear Picker: [id number] : 1980 Requested By: ALLY WANG Order Number: [id number] Reading MD: Measurements Intervals [place] Rate: 99 P: 0 AR: 120 QRS: 79 QRSD: 80 T: 38 QT: 368 QTc: 478 Interpretive Statements SINUS RHYTHM PROLONGED QT NO SPECIFIC ECG ABNORMALITIES RI6.02 No previous ECG available for comparison
[2020-05-27 02:12] VITALS: BP 144/93
[2020-05-27] MEDS ORDERED: diphenhydrAMINE 50 MG/ML VIAL IVP PRN (02:15)
[2020-05-27] MEDS ORDERED: cloNIDine HCL 0.1 MG TABLET PO PRN (02:15)
[2020-05-27] MEDS ORDERED: HALOPERIDOL LACT 5 MG/ML VIAL. IM PRN (02:15)
[2020-05-27] MEDS: IV RINGERS SOLUTION,LACTATED 1,000 ML IV SCH ×5 (02:21→18:17)
[2020-05-27] MEDS ORDERED: IPRATRPIUM/ALBUTEROL 0.5/2.5MG 3 ML NEBU. ONE (05:03)
[2020-05-27] MEDS: IPRATRPIUM/ALBUTEROL 0.5/2.5MG 3 ML NEBU. NEB SCH ×5 (05:07→22:54)
[2020-05-27 05:40] VITALS: BP 106/62
[2020-05-27 06:54] LABS: CALCIUM 8.4 mg/dL (8.5-10.1); CREATININE 0.7 mg/dL (0.6-1.0); GFR 94.2; POTASSIUM 3.2 mmol/L (3.5-5.1)
[2020-05-27 06:55] LABS: BASO % 1 % (0-3); EOS # 0.1 x10^3/uL (0.0-0.7); EOS % 3 % (0-3); HEMATOCRIT 40.8 % (36.0-47.0); HEMOGLOBIN 13.4 g/dL (12.0-15.5); LYMPH % 36 % (24-48); MEAN CORPUSCULAR HEMOGLOBIN 32 pg (25-35); MEAN CORPUSCULAR HGB CONC 33 g/dL (31-37); MEAN CORPUSCULAR VOLUME 97 fL (79-100); MONO # 0.3 x10^3/uL (0.0-1.1); MONO % 6 % (0-9); NEUT % 55 % (31-73); PLATELET COUNT 195 x10^3/uL (140-400); RED CELL DISTRIBUTION WIDTH 14.2 % (11.5-14.5); WHITE BLOOD COUNT 5.4 x10^3/uL (4.0-11.0)
[2020-05-27] MEDS ORDERED: HALOPERIDOL LACT 5 MG/ML VIAL. IM ONE (07:00)
[2020-05-27] MEDS ORDERED: MVI, ADULT NO.4 WITH VIT K 10 ML, FOLIC ACID INJ 1 MG, THIAMINE INJ 100 MG in IV RINGER... IV ONE (07:45)
[2020-05-27] MEDS ORDERED: MVI, ADULT NO.4 WITH VIT K 10 ML, FOLIC ACID INJ 1 MG, THIAMINE INJ 100 MG in IV NORMAL... IV ONE (07:45)
[2020-05-27] MEDS ORDERED: carBAMazepine 200 MG TABLET PO SCH (09:00)
[2020-05-27] MEDS ORDERED: MVI, ADULT NO.4 WITH VIT K 10 ML, THIAMINE INJ 100 MG in IV RINGERS SOLUTION,LACTATED 1... IV SCH (09:00)
[2020-05-27] MEDS ORDERED: ZIPRASIDONE 40 MG CAPSULE. PO SCH (09:00)
[2020-05-27] MEDS ORDERED: MVI, ADULT NO.4 WITH VIT K 10 ML, FOLIC ACID INJ 1 MG, THIAMINE INJ 100 MG in IV RINGER... IV SCH (09:00)
[2020-05-27 13:08] VITALS: BP 116/72
[2020-05-27] MEDS ORDERED: NICOTINE 21MG PATCH. TD SCH (13:10)
[2020-05-27] MEDS ORDERED: ZOLPIDEM 5 MG TABLET. PO PRN (14:45)
[2020-05-27] MEDS ORDERED: MIRT30TA3 PO (14:50)
[2020-05-27] MEDS ORDERED: CITA40TA5 PO (14:50)
[2020-05-27] MEDS ORDERED: BENZ0.5T32 PO (14:50)
[2020-05-27] MEDS ORDERED: CITALOPRAM 20 MG TABLET. PO SCH (15:15)
[2020-05-27 20:15] VITALS: BP 118/83
[2020-05-27] MEDS ORDERED: MIRTAZAPINE 30 MG TABLET PO SCH (21:00)
[2020-05-27] MEDS ORDERED: BENZTROPINE MESYLATE 0.5 MG TABLET PO SCH (21:00)
[2020-05-27] MEDS ORDERED: ZIPRASIDONE 60 MG CAPSULE. PO SCH (21:00)
[2020-05-28] MEDS: IV RINGERS SOLUTION,LACTATED 1,000 ML IV SCH
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
[2020-05-28] MEDS ORDERED: NICOTINE 21MG PATCH. TD SCH (09:00)
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
== END 2020-05-28 05:07 | disposition left against medical advice (07) | DRG 894 ==
LOC: ER 18:57 → ICU 23:09
PROVIDERS: ADMIT Family Medicine; ATTEND Family Medicine
DX: F10.129 Alcohol abuse with intoxication, unspecified (principal); E87.6 Hypokalemia; F31.9 Bipolar disorder, unspecified; F43.10 Post-traumatic stress disorder, unspecified; Z53.29 Procedure and treatment not carried out because of patient's decision for other reasons; Z87.820 Personal history of traumatic brain injury; Z87.440 Personal history of urinary (tract) infections; Z88.0 Allergy status to penicillin; Z88.8 Allergy status to other drugs, medicaments and biological substances; Y90.9 Presence of alcohol in blood, level not specified
CPT/HCPCS: 36415; 80048; 80053; 80307; 81001; 81025; 85025; 93005; 94640; G0480; J1200; J1630; J2060; J3490; J7120

== ENCOUNTER 2020-05-28 17:43 | Emergency (ER) | payer MEDICAID, MEDICARE ==
[2020-05-27 20:15] VITALS: BP 118/83
[~2020-05-28] VITALS: Ht 167.6 cm; Wt 59.0 kg
== END 2020-05-28 17:58 | disposition left against medical advice (07) ==
LOC: ER 17:43
DX: F10.129 Alcohol abuse with intoxication, unspecified (principal); Y90.9 Presence of alcohol in blood, level not specified; M62.838 Other muscle spasm; Z53.21 Procedure and treatment not carried out due to patient leaving prior to being seen by health care provider

== ENCOUNTER 2020-06-01 13:54 | Emergency (ER) | payer MEDICARE ==
[~2020-06-01] VITALS: Ht 167.6 cm; Wt 59.0 kg
[2020-06-01 15:02] LABS: BASO % 1 % (0-3); EOS # 0.1 x10^3/uL (0.0-0.7); EOS % 1 % (0-3); HEMATOCRIT 46.3 % (36.0-47.0); HEMOGLOBIN 15.3 g/dL (12.0-15.5); LYMPH % 29 % (24-48); MEAN CORPUSCULAR HEMOGLOBIN 32 pg (25-35); MEAN CORPUSCULAR HGB CONC 33 g/dL (31-37); MEAN CORPUSCULAR VOLUME 97 fL (79-100); MONO # 0.4 x10^3/uL (0.0-1.1); MONO % 5 % (0-9); NEUT # 4.5 x10^3uL (1.8-7.7); NEUT % 65 % (31-73); PLATELET COUNT 248 x10^3/uL (140-400); RED BLOOD COUNT 4.77 x10^6/uL (3.50-5.40); RED CELL DISTRIBUTION WIDTH 14.3 % (11.5-14.5); WHITE BLOOD COUNT 6.9 x10^3/uL (4.0-11.0)
[2020-06-01 15:18] LABS: CREATININE 0.5 mg/dL (0.6-1.0); GFR 138.8; POTASSIUM 3.5 mmol/L (3.5-5.1)
[2020-06-01 15:22] LABS: PREG TEST PT QUAL NEGATIVE (NEG)
[2020-06-01 17:00] VITALS: BP 105/68
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
== END 2020-06-01 17:59 | disposition left against medical advice (07) ==
LOC: ER 13:54
DX: F10.229 Alcohol dependence with intoxication, unspecified (principal); F41.9 Anxiety disorder, unspecified; F31.9 Bipolar disorder, unspecified; F17.210 Nicotine dependence, cigarettes, uncomplicated; Z87.820 Personal history of traumatic brain injury; Z88.0 Allergy status to penicillin; Z88.8 Allergy status to other drugs, medicaments and biological substances; Y90.8 Blood alcohol level of 240 mg/100 ml or more
CPT/HCPCS: 36415; 80048; 84703; 85025; 99283; G0480

== ENCOUNTER 2020-06-04 10:03 | Emergency (ER) | payer MEDICARE ==
[~2020-06-04] VITALS: Ht 167.6 cm; Wt 59.0 kg
[2020-06-04 10:03] VITALS: BP 96/67
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
[2020-06-04] MEDS ORDERED: silver sulfADIAZINE 1% CREAM 50GM JAR. TP ONE ×2 (11:29→11:30)
[2020-06-04 11:32] LABS: U PREG PATIENT NEGATIVE (NEG)
[2020-06-04 11:35] LABS: BARBITURATES NEG (NEG); BENZODIAZEPINES NEG (NEG); CANNABINOIDS NEG (NEG); COCAINE NEG (NEG); METHADONE NEG (NEG); OPIATES NEG (NEG); PHENCYCLIDINE NEG (NEG)
[2020-06-04 11:36] LABS: AMPHETAMINE/METHAMPHETAMINE NEG (NEG)
[2020-06-04 11:42] LABS: BILIRUBIN,URINE NEG (NEG); CLARITY,URINE HAZY; COLOR,URINE AMBER; GLUCOSE,URINE 100 mg/dL (NEG)
[2020-06-04 11:43] LABS: BACTERIA,URINE FEW /HPF (0-FEW); HYALINE CASTS, URINE FEW /HPF; NITRITE,URINE NEG (NEG); SQUAMOUS EPITHELIAL CELL,UR FEW /LPF; UROBILINOGEN,URINE 0.2 mg/dL (0.2 mg/dL)
[2020-06-04 11:47] LABS: BASO % 0 % (0-3); EOS % 0 % (0-3); HEMATOCRIT 46.5 % (36.0-47.0); HEMOGLOBIN 15.7 g/dL (12.0-15.5); LYMPH # 0.8 x10^3/uL (1.0-4.8); LYMPH % 10 % (24-48); MEAN CORPUSCULAR HEMOGLOBIN 32 pg (25-35); MEAN CORPUSCULAR HGB CONC 34 g/dL (31-37); MEAN CORPUSCULAR VOLUME 96 fL (79-100); MONO # 0.6 x10^3/uL (0.0-1.1); MONO % 7 % (0-9); NEUT # 7.1 x10^3uL (1.8-7.7); NEUT % 83 % (31-73); PLATELET COUNT 323 x10^3/uL (140-400); RED BLOOD COUNT 4.84 x10^6/uL (3.50-5.40); RED CELL DISTRIBUTION WIDTH 14.7 % (11.5-14.5); WHITE BLOOD COUNT 8.5 x10^3/uL (4.0-11.0)
[2020-06-04 11:52] LABS: CREATININE 0.9 mg/dL (0.6-1.0); GFR 70.5; POTASSIUM 3.2 mmol/L (3.5-5.1)
[2020-06-04 11:58] LABS: ALBUMIN 3.8 g/dL (3.4-5.0); ALBUMIN/GLOBULIN RATIO 1.1 (1.0-1.7); CALCIUM 8.7 mg/dL (8.5-10.1); TOTAL BILIRUBIN 0.2 mg/dL (0.2-1.0); TOTAL PROTEIN 7.4 g/dL (6.4-8.2)
--- NOTE | 2020-06-04 12:06 | NUR ---
pt brother called and stated that we to send pt to [facility] as he is tired of her. advised that we cannot do that as pt is not in a menal health crisis. caller angry with answer and ended the call
[2020-06-04] MEDS ORDERED: SILV20CR14 TP (12:23)
== END 2020-06-04 12:27 | disposition home or self-care (01) ==
LOC: ER 10:03
DX: T23.011A Burn of unspecified degree of right thumb (nail), initial encounter (principal); T24.012A Burn of unspecified degree of left thigh, initial encounter; T31.0 Burns involving less than 10% of body surface; F17.210 Nicotine dependence, cigarettes, uncomplicated; F10.20 Alcohol dependence, uncomplicated; Z88.0 Allergy status to penicillin; Z88.8 Allergy status to other drugs, medicaments and biological substances; Z87.820 Personal history of traumatic brain injury; Y90.6 Blood alcohol level of 120-199 mg/100 ml; X08.8XXA Exposure to other specified smoke, fire and flames, initial encounter; Y93.89 Activity, other specified; Y92.89 Other specified places as the place of occurrence of the external cause; Y99.8 Other external cause status
CPT/HCPCS: 16020; 36415; 80053; 80307; 81001; 81025; 85025; 99283; G0480; P9612

== ENCOUNTER 2020-06-24 16:06 | Emergency (ER) | payer MEDICARE ==
[~2020-06-24 16:06] MED LIST changes: +SILV20CR14 TP
== END 2020-06-24 16:13 | disposition left against medical advice (07) ==
LOC: ER 16:06
DX: R41.82 Altered mental status, unspecified (principal); Z53.21 Procedure and treatment not carried out due to patient leaving prior to being seen by health care provider

== ENCOUNTER 2020-06-27 01:11 | Emergency (ER) | payer MEDICARE ==
[~2020-06-27] VITALS: Ht 167.6 cm; Wt 59.0 kg
[2020-06-27 01:11] VITALS: BP 109/68
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
[2020-06-27] MEDS ORDERED: MVI, ADULT NO.4 WITH VIT K 10 ML, THIAMINE INJ 100 MG in IV RINGERS SOLUTION,LACTATED 1... IV ONE (02:00)
[2020-06-27] MEDS ORDERED: BACITRACIN ZINC TOPICAL OINT PACKET. TP ONE (02:00)
[2020-06-27] MEDS ORDERED: IV RINGERS SOLUTION,LACTATED 1,000 ML IV SCH (02:00)
== END 2020-06-27 04:55 | disposition left against medical advice (07) ==
LOC: ER 01:11
DX: L03.314 Cellulitis of groin (principal); F41.9 Anxiety disorder, unspecified; F31.9 Bipolar disorder, unspecified; F17.210 Nicotine dependence, cigarettes, uncomplicated; F10.20 Alcohol dependence, uncomplicated; I10 Essential (primary) hypertension; E03.9 Hypothyroidism, unspecified; F43.10 Post-traumatic stress disorder, unspecified; Z87.440 Personal history of urinary (tract) infections; Z87.820 Personal history of traumatic brain injury; Y90.9 Presence of alcohol in blood, level not specified
CPT/HCPCS: 93005; 99283

== ENCOUNTER 2020-06-28 19:15 | Emergency (ER) | payer MEDICARE ==
[~2020-06-28] VITALS: Ht 165.1 cm; Wt 54.5 kg
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
[2020-06-29 00:23] VITALS: BP 102/67
== END 2020-06-29 00:25 | disposition home or self-care (01) ==
LOC: ER 19:15
DX: R41.82 Altered mental status, unspecified (principal); F10.129 Alcohol abuse with intoxication, unspecified; F41.9 Anxiety disorder, unspecified; F32.9 Major depressive disorder, single episode, unspecified; F17.210 Nicotine dependence, cigarettes, uncomplicated; Z88.0 Allergy status to penicillin; Z88.8 Allergy status to other drugs, medicaments and biological substances; Y90.9 Presence of alcohol in blood, level not specified
CPT/HCPCS: 99285

== ENCOUNTER 2020-06-30 12:29 | Emergency (ER) | payer MEDICARE ==
[~2020-06-30] VITALS: Ht 165.1 cm; Wt 54.5 kg
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
[2020-06-30 13:18] LABS: BASO # 0.1 x10^3/uL (0.0-0.2); BASO % 1 % (0-3); EOS % 0 % (0-3); HEMATOCRIT 44.8 % (36.0-47.0); HEMOGLOBIN 14.8 g/dL (12.0-15.5); LYMPH # 1.7 x10^3/uL (1.0-4.8); LYMPH % 23 % (24-48); MEAN CORPUSCULAR HEMOGLOBIN 32 pg (25-35); MEAN CORPUSCULAR HGB CONC 33 g/dL (31-37); MEAN CORPUSCULAR VOLUME 96 fL (79-100); MONO # 0.5 x10^3/uL (0.0-1.1); MONO % 7 % (0-9); NEUT % 68 % (31-73); PLATELET COUNT 303 x10^3/uL (140-400); RED BLOOD COUNT 4.66 x10^6/uL (3.50-5.40); RED CELL DISTRIBUTION WIDTH 14.4 % (11.5-14.5); WHITE BLOOD COUNT 7.3 x10^3/uL (4.0-11.0)
[2020-06-30 13:31] LABS: ALBUMIN 3.5 g/dL (3.4-5.0); CALCIUM 8.8 mg/dL (8.5-10.1); CREATININE 0.6 mg/dL (0.6-1.0); GFR 112.5; TOTAL BILIRUBIN 0.3 mg/dL (0.2-1.0)
[2020-06-30 13:36] LABS: POTASSIUM 2.8 mmol/L (3.5-5.1)
[2020-06-30 15:20] VITALS: BP 124/79
== END 2020-06-30 16:30 | disposition left against medical advice (07) ==
LOC: ER 12:29
DX: F10.10 Alcohol abuse, uncomplicated (principal); F03.91 Unspecified dementia, unspecified severity, with behavioral disturbance; F41.9 Anxiety disorder, unspecified; F32.9 Major depressive disorder, single episode, unspecified; F17.210 Nicotine dependence, cigarettes, uncomplicated; Z88.0 Allergy status to penicillin; Z88.8 Allergy status to other drugs, medicaments and biological substances; Y90.8 Blood alcohol level of 240 mg/100 ml or more
CPT/HCPCS: 36415; 80053; 85025; 99283; G0480

== ENCOUNTER 2020-07-02 11:52 | Emergency (ER) | payer MEDICARE ==
[~2020-07-02] VITALS: Ht 165.1 cm; Wt 54.0 kg
[2020-07-02] MEDS ORDERED: NEOMY/BACITR/POLYMYXIN OINT PACKET. TP ONE ×2 (12:05→12:30)
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
[2020-07-02 12:59] LABS: BASO % 1 % (0-3); EOS % 0 % (0-3); HEMATOCRIT 44.9 % (36.0-47.0); HEMOGLOBIN 15.1 g/dL (12.0-15.5); LYMPH # 1.5 x10^3/uL (1.0-4.8); LYMPH % 25 % (24-48); MEAN CORPUSCULAR HEMOGLOBIN 32 pg (25-35); MEAN CORPUSCULAR HGB CONC 34 g/dL (31-37); MEAN CORPUSCULAR VOLUME 96 fL (79-100); MONO # 0.3 x10^3/uL (0.0-1.1); MONO % 6 % (0-9); NEUT % 68 % (31-73); PLATELET COUNT 297 x10^3/uL (140-400); RED BLOOD COUNT 4.68 x10^6/uL (3.50-5.40); RED CELL DISTRIBUTION WIDTH 14.4 % (11.5-14.5)
[2020-07-02 13:11] LABS: ALBUMIN 3.5 g/dL (3.4-5.0); CALCIUM 8.4 mg/dL (8.5-10.1); CREATININE 0.7 mg/dL (0.6-1.0); GFR 94.2; TOTAL BILIRUBIN 0.2 mg/dL (0.2-1.0); TOTAL PROTEIN 6.9 g/dL (6.4-8.2)
[2020-07-02 13:14] LABS: POTASSIUM 2.8 mmol/L (3.5-5.1)
--- NOTE | 2020-07-02 13:26 | RAD ---
Examination: CT HEAD AND CERVICAL SPINE WO History: Reason: fall /pain Comparison/Correlation: None Findings: Axial images of the head and cervical spine were obtained without contrast. Sagittal and coronal reformatted images of the cervical spine were provided. Atrophy is present. Left frontotemporal encephalomalacia is noted. Associated ex vacuo dilatation of the left occipital horn noted. Left craniotomy defects noted. No depressed fracture. No intracranial hemorrhage. Alignment of the cervical spine is normal. Vertebral body heights and disc spaces are adequate. Neural foramina are patent. Partially visualized upper lung barkley are unremarkable. Soft tissues of neck are unremarkable. Impression: No intracranial hemorrhage or other acute process. No fracture. Alignment unremarkable. PQRS Compliance Statement: One or more of the following individualized dose reduction techniques were utilized for this examination: 1. Automated exposure control 2. Adjustment of the mA and/or kV according to patient size 3. Use of iterative reconstruction technique Electronically signed by: Eros Fowler MD (07/02/2020 1:23 PM) [id number]
[2020-07-02 16:02] VITALS: BP 104/62
== END 2020-07-02 16:30 | disposition home or self-care (01) ==
LOC: ER 11:52
DX: S00.81XA Abrasion of other part of head, initial encounter (principal); F10.229 Alcohol dependence with intoxication, unspecified; F41.9 Anxiety disorder, unspecified; F32.9 Major depressive disorder, single episode, unspecified; F17.210 Nicotine dependence, cigarettes, uncomplicated; Z88.0 Allergy status to penicillin; Z88.8 Allergy status to other drugs, medicaments and biological substances; Z98.890 Other specified postprocedural states; W18.39XA Other fall on same level, initial encounter; Y93.89 Activity, other specified; Y92.89 Other specified places as the place of occurrence of the external cause; Y99.8 Other external cause status; Z79.899 Other long term (current) drug therapy
CPT/HCPCS: 36415; 70450; 72125; 80053; 85025; 99285; G0480